=== PATIENT | female | born 1990 | race Caucasian/White ===

== ENCOUNTER 2017-02-13 06:57 | Inpatient (IN) | payer BC ==
[2017-02-13] MEDS ORDERED: fentaNYL 100 MCG/2 ML SDV IVPUSH PRN (07:36)
[2017-02-13] MEDS ORDERED: Sodium Chloride 0.9% 10 ML Syringe FLUSH PRN (07:36)
[2017-02-13] MEDS ORDERED: Misoprostol 50 MCG (1/2 of 100 MCG) Tab VAG ONE ×2 (08:00→12:49)
--- NOTE | 2017-02-13 08:15 | PCM.LDHP ---
L&D History of Present Illness - General Date of Service: 02/13/17 (induction) Admit Problem/Dx: Patient Status Order with Admit Dx/Problem 02/13/17 07:36 Patient Status [ADT] Routine Admission Diagnosis/Problem Admission Diagnosis/Problem - planned Source of Information: Patient History Limitations: Reports: No Limitations - History of Present Illness Introduction:: This 26 year old who is 40 2/7 weeks presents for induction of labor. JANA 02/11/17 based on LMP and early US. Last baby was 8-6 and I had to use the vacuum to get her out. Lab: ABO A pos HIV neg Rubella immune GBS neg - Related Data Allergies/Adverse Reactions: Allergies Allergy/AdvReac Type Severity Reaction Status Date / Time latex Allergy Rash Verified 02/13/17 07:23 Home Medications: Home Meds Levothyroxine Sodium [Levothyroxine Sodium] 175 mcg PO DAILY 01/12/15 [History] Vit/Iron Bisglycin/FA [Vinate II] 1 tab PO QPM 01/12/15 [History] Past Medical History HEENT History: Reports: Impaired Vision [employer] History: Reports: : 4 Para: 1 LMP (Approximate): (JANA 02/11/17) Other OB/BYN History: Polysystic ovarian syndrome. Other Musculoskeletal History: Scoliosis Endocrine/Metabolic History: Reports: Hypoparathyroidism - Past Surgical History HEENT Surgical History: Reports: Tonsillectomy Social & Family History - Family History Family Medical History: Noncontributory - Tobacco Use Smoking Status *Q: Never Smoker Second Hand Smoke Exposure: No - Caffeine Use Caffeine Use: Reports: Soda Other Caffeine Use: 1 per day - Alcohol Use Days Per Week of Alcohol Use: 0 - Recreational Drug Use Recreational Drug Use: No H&P Review of Systems - Review of Systems: Review Of Systems: See Below General: Reports: No Symptoms HEENT: Reports: No Symptoms Pulmonary: Reports: No Symptoms Cardiovascular: Reports: No Symptoms Gastrointestinal: Reports: No Symptoms Genitourinary: Reports: No Symptoms Musculoskeletal: Reports: No Symptoms Skin: Reports: No Symptoms Psychiatric: Reports: No Symptoms Neurological: Reports: No Symptoms Hematologic/Lymphatic: Reports: No Symptoms Immunologic: Reports: No Symptoms L&D Exam - Exam Exam: See Below - Vital Signs Vital Signs: Last Vital Signs Temp 98.7 F 02/13/17 07:08 Pulse 110 H 02/13/17 07:08 Resp 18 02/13/17 07:08 BP 122/79 02/13/17 07:08 Pulse Ox 97 02/13/17 07:08 Weight: 228 lb - OB Specific Fundal Height In cm: 39 Movement: Active Heart Tones: Present Heart Tones per Min: 145 Heart Rate (FHR) Variability: Moderate (6-25 bmp) Presentation: Vertex Estimated Weight: 8 pounds - Ocampo Score Ocampo Score Cervix Position: Anterior Ocampo Score Consistency: Soft Ocampo Score Effacement: 51-70% Ocampo Score Dilation: 1-2 cm Ocampo Score Infant's Station: -1 ,0 Ocampo Score Total: 9 - Exam General: Alert, Oriented HEENT: PERRLA, Conjunctiva Clear, Pupils Equal, Pupils Reactive Neck: Supple Lungs: Clear to Auscultation, Normal Respiratory Effort Cardiovascular: Regular Rate, Regular Rhythm GI/Abdominal Exam: Soft, Non-Tender, No Organomegaly, No Mass Rectal Exam: Normal Exam Genitourinary: Normal external exam, Cervical dilitation, Enlarged uterus, Vaginal discharge Back Exam: Normal Inspection, Full Range of Motion Extremities: Normal Inspection, Normal Range of Motion, Non-Tender, No Pedal Edema, Normal Capillary Refill Skin: Warm, Dry, Intact Neurological: Cranial Nerves Intact, Reflexes Equal Bilateral Psychiatric: Alert, Normal Affect, Normal Mood - Patient Data Lab Results Last 24 hrs: Laboratory Results - last 24 hr 02/13/17 02/13/17 02/13/17 Range/Units 07:09 07:09 07:36 WBC 11.8 H (4.5-11.0) K/uL RBC 4.06 (3.30-5.50) M/uL Hgb 12.3 (12.0-15.0) g/dL Hct 37.5 (36.0-48.0) % MCV 92 (80-98) fL MCH 30 (27-31) pg MCHC 33 (32-36) % Plt Count 179 (150-400) K/uL Urine Color Yellow Urine Appearance Slightly cloudy Urine pH 5.0 (4.5-8.0) Ur Specific [place] 1.030 (1.008-1.030) Urine Protein Negative (NEGATIVE) mg/dL Urine Glucose (UA) Normal (NEGATIVE) mg/dL Urine Ketones Negative (NEGATIVE) mg/dL Urine Occult Blood Negative (NEGATIVE) Urine Nitrite Negative (NEGATIVE) Urine Bilirubin Negative (NEGATIVE) Urine Urobilinogen 1 (NORMAL) mg/dL Ur Leukocyte Esterase Moderate (NEGATIVE) Urine RBC 0-5 (0-5) Urine WBC 0-5 (0-5) Ur Epithelial Cells Moderate Amorphous Sediment Not seen Urine Bacteria Few Urine Mucus Moderate Urine Opiates Screen Negative (NEGATIVE) Ur Oxycodone Screen Negative (NEGATIVE) Urine Methadone Screen Negative (NEGATIVE) Ur Propoxyphene Screen Negative (NEGATIVE) Ur Barbiturates Screen Negative (NEGATIVE) Ur Tricyclics Screen Negative (NEGATIVE) Ur Phencyclidine Scrn Negative (NEGATIVE) Ur Amphetamine Screen Negative (NEGATIVE) U Methamphetamines Scrn Negative (NEGATIVE) Urine MDMA Screen Negative (NEGATIVE) U Benzodiazepines Scrn Negative (NEGATIVE) U Cocaine Metab Screen Negative (NEGATIVE) U Marijuana (THC) Screen Negative (NEGATIVE) Result Diagrams: 02/13/17 07:36 - Problem List (1) Elective induction of labor planned SNOMED Code(s): 817614621 ICD Code: [id number] - Status: Acute Current Visit: Yes (2) SNOMED Code(s): 89932120 ICD Code: Z34.90 - ENCNTR FOR SUPRVSN OF NORMAL , UNSP, UNSP TRIMESTER Status: Acute Current Visit: Yes Qualifiers: Weeks of gestation: 40 weeks Qualified Code(s): Z3A.40 - 40 weeks gestation of Problem List Initiated/Reviewed/Updated: Yes Orders Last 24hrs: Active Orders 24 hr Category Date Time Status Patient Status [ADT] Routine ADT 02/13/17 07:36 Active Antiembolic Devices [RC] .Routine Care 02/13/17 07:39 Active Communication Order [RC] ASDIRECTED Care 02/13/17 07:36 Active Heart Tones [RC] PER UNIT ROUTINE Care 02/13/17 07:36 Active May Shower [RC] ASDIRECTED Care 02/13/17 07:36 Active Notify Provider Vital Signs [RC] PRN Care 02/13/17 07:36 Active Notify Provider [RC] PRN Care 02/13/17 07:36 Active Up ad Nevaeh [RC] ASDIRECTED Care 02/13/17 07:36 Active VTE/DVT Education [RC] Click to Edit Care 02/13/17 07:39 Active Vital Signs [RC] PER UNIT ROUTINE Care 02/13/17 07:36 Active Regular Diet [DIET] Diet 02/13/17 Lunch Active Acetaminophen [Tylenol] Med 02/13/17 07:36 Active 650 mg PO Q4H PRN Ondansetron [Zofran ODT] Med 02/13/17 07:36 Active 4 mg PO Q4H PRN Oxytocin/Normal Saline [Pitocin in NS 20 Units/1,000 ML Med 02/13/17 07:45 Active ] 20 unit in 1,000 ml IV TITRATE Sodium Chloride 0.9% [Saline Flush] Med 02/13/17 07:36 Active 10 ml FLUSH ASDIRECTED PRN fentaNYL [Sublimaze] Med 02/13/17 07:36 Active 100 mcg IVPUSH Q1H PRN DVT/VTE Prophylaxis Reflex [OM.PC] Routine Oth 02/13/17 07:36 Ordered Saline Lock Insert [OM.PC] Routine Oth 02/13/17 07:36 Ordered Resuscitation Status Routine Resus Stat 02/13/17 07:36 Ordered Medication Orders Acetaminophen (Tylenol) 650 mg PO Q4H PRN PRN Reason: Pain (Mild 1-3) and fever Fentanyl (Sublimaze) 100 mcg IVPUSH Q1H PRN PRN Reason: Pain (moderate 4-6) Oxytocin/Sodium Chloride (Pitocin In Ns 20 Units/1,000 Ml) 20 unit in 1,000 mls @ 6 mls/hr IV TITRATE JAZ; 2 MUNITS/MIN PRN Reason: Protocol Ondansetron HCl (Zofran Odt) 4 mg PO Q4H PRN PRN Reason: Nausea/Vomiting Sodium Chloride (Saline Flush) 10 ml FLUSH ASDIRECTED PRN PRN Reason: Keep Vein Open Assessment/Plan Comment:: 26 year old 40 2/7 weeks presents for planned induction. Adequate care. History of hypothyroid, controlled during . Labs: ABO A pos, GBS neg, HIV neg, Rubella immune. CE /0 anterior, head down Baseline FHT 145 moderate variability, Cat one strip Bishops score 9 Plan Misoprostol 50 mcg this morning vaginally Reassess at noon, may repeat dose. Epidural later today. Plan for vaginal delivery.
[2017-02-13] MEDS ORDERED: Misoprostol 25 MCG (1/4 of 100 MCG) Tab ONE (12:47)
[2017-02-13] MEDS: Lactated Ringers 1,000 ML IV SCH ×2 (13:22→14:20)
--- NOTE | 2017-02-13 13:24 | PCM.PNLD ---
Labor Progress Note - VS & Meds Vital Signs: Last Vital Signs Temp 98.3 F 02/13/17 12:06 Pulse 90 02/13/17 12:06 Resp 18 02/13/17 12:06 BP 124/78 02/13/17 12:06 Pulse Ox 97 02/13/17 12:06 Active Medications: Current Medications Acetaminophen (Tylenol) 650 mg PO Q4H PRN PRN Reason: Pain (Mild 1-3) and fever Fentanyl (Sublimaze) 100 mcg IVPUSH Q1H PRN PRN Reason: Pain (moderate 4-6) Oxytocin/Sodium Chloride (Pitocin In Ns 20 Units/1,000 Ml) 20 unit in 1,000 mls @ 6 mls/hr IV TITRATE JAZ; 2 MUNITS/MIN PRN Reason: Protocol Lactated Ringer's (Ringers, Lactated) 1,000 mls @ 125 mls/hr IV ASDIRECTED JAZ Misoprostol (Cytotec) 25 mcg VAG ONETIME ONE Stop: 02/13/17 12:50 Ondansetron HCl (Zofran Odt) 4 mg PO Q4H PRN PRN Reason: Nausea/Vomiting Sodium Chloride (Saline Flush) 10 ml FLUSH ASDIRECTED PRN PRN Reason: Keep Vein Open Discontinued Medications Misoprostol (Cytotec) 50 mcg VAG ONETIME ONE Stop: 02/13/17 08:01 Last Admin: 02/13/17 08:04 Dose: 50 mcg Misoprostol (Cytotec) Confirm Administered Dose 25 mcg .ROUTE .STK-MED ONE Stop: 02/13/17 12:48 Last Admin: 02/13/17 12:51 Dose: Not Given - Uterine Contractions Uterine Monitoring Mode: External [place] Contraction Frequency (min): 1.5-4 Contraction Duration (sec): 40 Contraction Intensity: Mild to Moderate Uterine Resting Tone: Soft - Monitoring Monitor Mode: Doppler/Auscultation Heart Rate (FHR) Baseline: 135 Heart Rate (FHR) Variability: Moderate (6-25 bmp) Accelerations: Present, 15x15 Decelerations: None Strip Review: Category I - Vaginal Exam Dilation (cm): 3-4 Effacement (Percent): 75 Station: 0 Cervical Position: Anterior Sterile Vaginal Exam Performed By: Dominique Marroquin Vaginal Exam Comment: Nice change since this morning; little bloody show - Labor Progress (Free Text) Labor Progress: 02/13/17 Latent labor with cervical change Membranes stripped with vaginal exam Second dose of misoprostil 25mcg vaginally Plan for epidural in the next couple of hours; bolus of NS started Anticipate vaginal delivery early this evening
[2017-02-13] MEDS ORDERED: ePHEDrine 50 MG/ML SDV ONE (14:05)
[2017-02-13] MEDS ORDERED: Oxytocin 10 Units/1 ML SDV ONE ×3 (14:12→19:10)
[2017-02-13] MEDS ORDERED: Naloxone 0.4 MG/ML SDV ONE (14:12)
[2017-02-13] MEDS ORDERED: Lidocaine 1% 50 ML MDV ONE (14:12)
[2017-02-13] MEDS ORDERED: ePHEDrine 50 MG/ML SDV IVPUSH PRN (14:20)
[2017-02-13] MEDS ORDERED: Ropivacaine 100 ML ONE (14:57)
[2017-02-13] MEDS ORDERED: fentaNYL 100 MCG/2 ML SDV ONE (14:57)
--- NOTE | 2017-02-13 16:21 | PCM.PNLD ---
Labor Progress Note - VS & Meds Vital Signs: Last Vital Signs Temp 98.3 F 02/13/17 12:06 Pulse 90 02/13/17 12:06 Resp 18 02/13/17 12:06 BP 99/58 L 02/13/17 15:03 Pulse Ox 97 02/13/17 12:06 Active Medications: Current Medications Acetaminophen (Tylenol) 650 mg PO Q4H PRN PRN Reason: Pain (Mild 1-3) and fever Fentanyl (Sublimaze) 100 mcg IVPUSH Q1H PRN PRN Reason: Pain (moderate 4-6) Oxytocin/Sodium Chloride (Pitocin In Ns 20 Units/1,000 Ml) 20 unit in 1,000 mls @ 6 mls/hr IV TITRATE JAZ; 2 MUNITS/MIN PRN Reason: Protocol Last Admin: 02/13/17 14:17 Dose: 2 munits/min, 6 mls/hr Lactated Ringer's (Ringers, Lactated) 1,000 mls @ 125 mls/hr IV ASDIRECTED JAZ Last Admin: 02/13/17 14:20 Dose: 125 mls/hr Ondansetron HCl (Zofran Odt) 4 mg PO Q4H PRN PRN Reason: Nausea/Vomiting Sodium Chloride (Saline Flush) 10 ml FLUSH ASDIRECTED PRN PRN Reason: Keep Vein Open Discontinued Medications Ephedrine Sulfate (Ephedrine Sulfate) Confirm Administered Dose 50 mg .ROUTE .STK-MED ONE Stop: 02/13/17 14:06 Last Admin: 02/13/17 15:09 Dose: 10 mg Fentanyl (Sublimaze) Confirm Administered Dose 100 mcg .ROUTE .STK-MED ONE Stop: 02/13/17 14:58 Oxytocin/Sodium Chloride (Pitocin In Ns 20 Units/1,000 Ml) Confirm Administered Dose 20 unit in 1,000 mls @ as directed .ROUTE .STK-MED ONE Stop: 02/13/17 14:13 Last Admin: 02/13/17 14:17 Dose: Not Given Ropivacaine (Naropin 0.2%) Confirm Administered Dose 100 mls @ as directed .ROUTE .STK-MED ONE Stop: 02/13/17 14:58 Lidocaine HCl (Xylocaine 1%) Confirm Administered Dose 100 ml .ROUTE .STK-MED ONE Stop: 02/13/17 14:13 Misoprostol (Cytotec) 50 mcg VAG ONETIME ONE Stop: 02/13/17 08:01 Last Admin: 02/13/17 08:04 Dose: 50 mcg Misoprostol (Cytotec) Confirm Administered Dose 25 mcg .ROUTE .STK-MED ONE Stop: 02/13/17 12:48 Last Admin: 02/13/17 12:51 Dose: Not Given Misoprostol (Cytotec) 25 mcg VAG ONETIME ONE Stop: 02/13/17 12:50 Last Admin: 02/13/17 13:22 Dose: 25 mcg Naloxone HCl (Narcan) Confirm Administered Dose 0.4 mg .ROUTE .STK-MED ONE Stop: 02/13/17 14:13 Oxytocin (Pitocin) Confirm Administered Dose 10 unit .ROUTE .STK-MED ONE Stop: 02/13/17 14:13 - Uterine Contractions Uterine Monitoring Mode: External [place] Contraction Frequency (min): 2-3 Contraction Duration (sec): 50-60 Contraction Intensity: Moderate to Strong Uterine Resting Tone: Soft - Monitoring Monitor Mode: Doppler/Auscultation Heart Rate (FHR) Baseline: 135 Heart Rate (FHR) Variability: Moderate (6-25 bmp) Accelerations: Present, 15x15 Decelerations: Variable, Prolonged (>2x10 min) Strip Review: Category III - Vaginal Exam Dilation (cm): 5 Effacement (Percent): 100 Station: Ballotable Cervical Position: Anterior Sterile Vaginal Exam Performed By: Dominique Marroquin Vaginal Exam Comment: prolonged heart rate in the 90's. - Labor Progress (Free Text) Labor Progress: compromise from variables decels To OR for c section CE 5/100/0
--- NOTE | 2017-02-13 17:27 | ANES ---
DATE OF SERVICE: 02/13/2017 INDICATION: This 26-year-old has been in an induced labor since early this morning. Currently, her vital signs are stable and her dilatation is to 4-5 and she is having increased pain. Donna Marroquin has asked that an epidural be placed. The patient's only allergy is to adhesive tape. We discussed risks and benefits of the procedure. She has understanding of these, as she had had an epidural 2 years ago done in this hospital apparently by me. She signed the informed consent. DESCRIPTION OF PROCEDURE: She was placed in a sitting position on the edge of the bed. A Betadine prep was carried out x3. A 2 mm skin wheal was injected at approximately L4-L5 and another 2 to 3 mL into the deeper tissue. I placed a 17-gauge Tuohy needle into that epidural space using a loss of resistance technique. I was unable to aspirate blood, fluid, or air from the epidural and proceeded to give her a bolus of 7 mL, which was 5 mL of 1.5% Xylocaine with epinephrine and 2 mL preservative-free fentanyl. On attempting to thread the catheter, this was not successful. Adjustment of the epidural catheter and again being unable to aspirate blood, fluid, or air from it. I could not advance the catheter. This patient was very accommodating and that she allowed me to repeat the procedure and once I had good loss of resistance, I easily thread the catheter 3-4 cm into the epidural space. The epidural needle was then removed over the catheter, brought up over her right shoulder, and taped securely in place. I then gave her a 10 mL bolus of 0.2% ropivacaine. She was then placed on a ropivacaine infusion at 12 mL/hour. This was then reviewed with the nurse in attendance. They will call Anesthesia Service should they need further assistance. NAME OF PROCEDURE: Placement of labor epidural. Shahab [place] CRNA /[id number]
[2017-02-13] MEDS ORDERED: Coagulation Factor VIIa Recombinant (per MCG) 2 MG Vial IVPUSH ONE ×2 (18:05→18:06)
[2017-02-13] MEDS ORDERED: Coagulation Factor VIIa Recombinant (per MCG) 2 MG Vial IVPUSH STA (18:21)
[2017-02-13] MEDS: Methylergonovine 0.2 MG/1 ML Amp ONE ×5 (18:41→20:38)
[2017-02-13] MEDS: Methylergonovine 0.2 MG/1 ML Amp IM STA (18:46)
[2017-02-13] MEDS ORDERED: HYDROmorphone/Normal Saline 15 MG/30 ML PCA IV ONE (19:01)
[2017-02-13] MEDS ORDERED: HYDROmorphone/Normal Saline 15 MG/30 ML PCA IV PRN (20:02)
[2017-02-13] MEDS ORDERED: Naloxone 0.4 MG/ML SDV IV PRN (20:11)
[2017-02-13] MEDS: HYDROmorphone/Normal Saline 15 MG/30 ML PCA IV PRN (20:53)
[2017-02-13] MEDS: D5 1/2 NS w/ 20 mEq/L KCl 1,000 ML ONE ×2 (21:00→22:31)
[2017-02-13] MEDS ORDERED: Lactated Ringers 500 ML IV SCH (21:15)
[2017-02-14] MEDS ORDERED: D5 1/2 NS w/ 20 mEq/L KCl 1,000 ML IV SCH ×2 (03:45)
--- NOTE | 2017-02-14 06:30 | PCM.SURGPN ---
- General Info Date of Service: 02/14/17 Date of Surgery/Procedure: 02/13/17 POD#: 1 Post-Op Diagnosis: Emergency section followed later by hysterectomy Functional Status: Reports: Pain Controlled, Tolerating Diet (Ice chips), Urinating (Olvera) - Review of Systems General: Reports: No Symptoms Pulmonary: Reports: No Symptoms Cardiovascular: Reports: No Symptoms Gastrointestinal: Reports: Abdominal Pain (Incisional. ), Other (Would like to drink something). Denies: Nausea Genitourinary: Reports: No Symptoms (Olvera in place) Musculoskeletal: Reports: No Symptoms Skin: Reports: No Symptoms Neurological: Reports: No Symptoms Psychiatric: Reports: No Symptoms - Patient Data Vitals - Most Recent: Last Vital Signs Temp 96.6 F 02/13/17 18:50 Pulse 97 02/14/17 04:27 Resp 16 02/14/17 04:27 BP 129/72 02/14/17 04:27 Pulse Ox 96 02/14/17 04:27 Weight - Most Recent: 228 lb I&O - Last 24 Hours: Intake & Output 02/13/17 02/13/17 02/14/17 14:59 22:59 06:59 Intake Total 4500 1090 Output Total 495 Balance 4500 595 Lab Results Last 24 Hrs: Laboratory Results - last 24 hr 02/13/17 02/13/17 02/13/17 Range/Units 07:09 07:09 07:36 WBC 11.8 H (4.5-11.0) K/uL RBC 4.06 (3.30-5.50) M/uL Hgb 12.3 (12.0-15.0) g/dL Hct 37.5 (36.0-48.0) % MCV 92 (80-98) fL MCH 30 (27-31) pg MCHC 33 (32-36) % Plt Count 179 (150-400) K/uL Sodium (140-148) mmol/L Potassium (3.6-5.2) mmol/L Chloride (100-108) mmol/L Carbon Dioxide (21-32) mmol/L Anion Gap (5.0-14.0) mmol/L BUN (7-18) mg/dL Creatinine (0.6-1.0) mg/dL Est Cr Clr Drug Dosing mL/min Estimated GFR (MDRD) (>60) Glucose (74-106) mg/dL Calcium (8.5-10.1) mg/dL Total Bilirubin (0.2-1.0) mg/dL AST (15-37) U/L ALT (12-78) U/L Alkaline Phosphatase (46-116) U/L Total Protein (6.4-8.2) g/dL Albumin (3.4-5.0) g/dL Globulin (2.3-3.5) g/dL Albumin/Globulin Ratio (1.2-2.2) Urine Color Yellow Urine Appearance Slightly cloudy Urine pH 5.0 (4.5-8.0) Ur Specific Cranston 1.030 (1.008-1.030) Urine Protein Negative (NEGATIVE) mg/dL Urine Glucose (UA) Normal (NEGATIVE) mg/dL Urine Ketones Negative (NEGATIVE) mg/dL Urine Occult Blood Negative (NEGATIVE) Urine Nitrite Negative (NEGATIVE) Urine Bilirubin Negative (NEGATIVE) Urine Urobilinogen 1 (NORMAL) mg/dL Ur Leukocyte Esterase Moderate (NEGATIVE) Urine RBC 0-5 (0-5) Urine WBC 0-5 (0-5) Ur Epithelial Cells Moderate Amorphous Sediment Not seen Urine Bacteria Few Urine Mucus Moderate Urine Opiates Screen Negative (NEGATIVE) Ur Oxycodone Screen Negative (NEGATIVE) Urine Methadone Screen Negative (NEGATIVE) Ur Propoxyphene Screen Negative (NEGATIVE) Ur Barbiturates Screen Negative (NEGATIVE) Ur Tricyclics Screen Negative (NEGATIVE) Ur Phencyclidine Scrn Negative (NEGATIVE) Ur Amphetamine Screen Negative (NEGATIVE) U Methamphetamines Scrn Negative (NEGATIVE) Urine MDMA Screen Negative (NEGATIVE) U Benzodiazepines Scrn Negative (NEGATIVE) U Cocaine Metab Screen Negative (NEGATIVE) U Marijuana (THC) Screen Negative (NEGATIVE) Blood Type Gel Antibody Screen Crossmatch 02/13/17 02/13/17 02/13/17 Range/Units 17:09 17:55 22:01 WBC 20.8 H (4.5-11.0) K/uL RBC 2.65 L (3.30-5.50) M/uL Hgb 8.1 L D 11.4 L D (12.0-15.0) g/dL Hct 25.0 L (36.0-48.0) % MCV 94 (80-98) fL MCH 31 (27-31) pg MCHC 32 (32-36) % Plt Count 153 (150-400) K/uL Sodium (140-148) mmol/L Potassium (3.6-5.2) mmol/L Chloride (100-108) mmol/L Carbon Dioxide (21-32) mmol/L Anion Gap (5.0-14.0) mmol/L BUN (7-18) mg/dL Creatinine (0.6-1.0) mg/dL Est Cr Clr Drug Dosing mL/min Estimated GFR (MDRD) (>60) Glucose (74-106) mg/dL Calcium (8.5-10.1) mg/dL Total Bilirubin (0.2-1.0) mg/dL AST (15-37) U/L ALT (12-78) U/L Alkaline Phosphatase (46-116) U/L Total Protein (6.4-8.2) g/dL Albumin (3.4-5.0) g/dL Globulin (2.3-3.5) g/dL Albumin/Globulin Ratio (1.2-2.2) Urine Color Urine Appearance Urine pH (4.5-8.0) Ur Specific Cranston (1.008-1.030) Urine Protein (NEGATIVE) mg/dL Urine Glucose (UA) (NEGATIVE) mg/dL Urine Ketones (NEGATIVE) mg/dL Urine Occult Blood (NEGATIVE) Urine Nitrite (NEGATIVE) Urine Bilirubin (NEGATIVE) Urine Urobilinogen (NORMAL) mg/dL Ur Leukocyte Esterase (NEGATIVE) Urine RBC (0-5) Urine WBC (0-5) Ur Epithelial Cells Amorphous Sediment Urine Bacteria Urine Mucus Urine Opiates Screen (NEGATIVE) Ur Oxycodone Screen (NEGATIVE) Urine Methadone Screen (NEGATIVE) Ur Propoxyphene Screen (NEGATIVE) Ur Barbiturates Screen (NEGATIVE) Ur Tricyclics Screen (NEGATIVE) Ur Phencyclidine Scrn (NEGATIVE) Ur Amphetamine Screen (NEGATIVE) U Methamphetamines Scrn (NEGATIVE) Urine MDMA Screen (NEGATIVE) U Benzodiazepines Scrn (NEGATIVE) U Cocaine Metab Screen (NEGATIVE) U Marijuana (THC) Screen (NEGATIVE) Blood Type A POSITIVE Gel Antibody Screen Negative Crossmatch See Detail 02/14/17 02/14/17 Range/Units 03:50 03:50 WBC (4.5-11.0) K/uL RBC (3.30-5.50) M/uL Hgb 10.1 L (12.0-15.0) g/dL Hct (36.0-48.0) % MCV (80-98) fL MCH (27-31) pg MCHC (32-36) % Plt Count (150-400) K/uL Sodium 136 L (140-148) mmol/L Potassium 5.3 H (3.6-5.2) mmol/L Chloride 108 (100-108) mmol/L Carbon Dioxide 18 L (21-32) mmol/L Anion Gap 15.3 H (5.0-14.0) mmol/L BUN 11 D (7-18) mg/dL Creatinine 0.7 (0.6-1.0) mg/dL Est Cr Clr Drug Dosing 101.63 mL/min Estimated GFR (MDRD) > 60 (>60) Glucose 135 H (74-106) mg/dL Calcium 7.5 L (8.5-10.1) mg/dL Total Bilirubin 0.6 D (0.2-1.0) mg/dL AST 59 H D (15-37) U/L ALT 21 (12-78) U/L Alkaline Phosphatase 65 (46-116) U/L Total Protein 4.3 L (6.4-8.2) g/dL Albumin 1.5 L (3.4-5.0) g/dL Globulin 2.8 (2.3-3.5) g/dL Albumin/Globulin Ratio 0.5 L (1.2-2.2) Urine Color Urine Appearance Urine pH (4.5-8.0) Ur Specific [place] (1.008-1.030) Urine Protein (NEGATIVE) mg/dL Urine Glucose (UA) (NEGATIVE) mg/dL Urine Ketones (NEGATIVE) mg/dL Urine Occult Blood (NEGATIVE) Urine Nitrite (NEGATIVE) Urine Bilirubin (NEGATIVE) Urine Urobilinogen (NORMAL) mg/dL Ur Leukocyte Esterase (NEGATIVE) Urine RBC (0-5) Urine WBC (0-5) Ur Epithelial Cells Amorphous Sediment Urine Bacteria Urine Mucus Urine Opiates Screen (NEGATIVE) Ur Oxycodone Screen (NEGATIVE) Urine Methadone Screen (NEGATIVE) Ur Propoxyphene Screen (NEGATIVE) Ur Barbiturates Screen (NEGATIVE) Ur Tricyclics Screen (NEGATIVE) Ur Phencyclidine Scrn (NEGATIVE) Ur Amphetamine Screen (NEGATIVE) U Methamphetamines Scrn (NEGATIVE) Urine MDMA Screen (NEGATIVE) U Benzodiazepines Scrn (NEGATIVE) U Cocaine Metab Screen (NEGATIVE) U Marijuana (THC) Screen (NEGATIVE) Blood Type Gel Antibody Screen Crossmatch Med Orders - Current: Current Medications Acetaminophen (Tylenol) 650 mg PO Q4H PRN PRN Reason: Pain (Mild 1-3) and fever Fentanyl (Sublimaze) 100 mcg IVPUSH Q1H PRN PRN Reason: Pain (moderate 4-6) Hydromorphone HCl (Dilaudid Trackless Trolley Driver 15 Mg In Ns 30 Ml) 0 mg IV ASDIRECTED PRN; Protocol PRN 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 Last Admin: 02/13/17 20:53 Dose: 15 mg Naloxone HCl (Narcan) 0.1 mg IV ASDIRECTED PRN PRN Reason: decreased respiratory rate Ondansetron HCl (Zofran Odt) 4 mg PO Q4H PRN PRN Reason: Nausea/Vomiting Sodium Chloride (Saline Flush) 10 ml FLUSH ASDIRECTED PRN PRN Reason: Keep Vein Open Discontinued Medications Ephedrine Sulfate (Ephedrine Sulfate) Confirm Administered Dose 50 mg .ROUTE .STK-MED ONE Stop: 02/13/17 14:06 Last Admin: 02/13/17 15:09 Dose: 10 mg Factor VIIa (Recombinant) (Novoseven Rt) Confirm Administered Dose 2 mcg IVPUSH .STK-MED ONE Stop: 02/13/17 18:06 Factor VIIa (Recombinant) (Novoseven Rt) Confirm Administered Dose 2 mcg IVPUSH .STK-MED ONE Stop: 02/13/17 18:07 Factor VIIa (Recombinant) (Novoseven Rt) 2,000 mcg IVPUSH ONETIME STA Stop: 02/13/17 18:22 Last Admin: 02/13/17 18:13 Dose: 2,000 mcg Fentanyl (Sublimaze) Confirm Administered Dose 100 mcg .ROUTE .STK-MED ONE Stop: 02/13/17 14:58 Hydromorphone HCl (Dilaudid Trackless Trolley Driver 15 Mg In Ns 30 Ml) Confirm Administered Dose 15 mg IV .STK-MED ONE Stop: 02/13/17 19:02 Last Admin: 02/13/17 22:30 Dose: Not Given Hydromorphone HCl (Dilaudid Trackless Trolley Driver 15 Mg In Ns 30 Ml) 15 mg IV ASDIRECTED PRN; Protocol PRN Reason: PAIN Oxytocin/Sodium Chloride (Pitocin In Ns 20 Units/1,000 Ml) 20 unit in 1,000 mls @ 6 mls/hr IV TITRATE JAZ; 2 MUNITS/MIN PRN Reason: Protocol Last Admin: 02/13/17 14:17 Dose: 2 munits/min, 6 mls/hr Lactated Ringer's (Ringers, Lactated) 1,000 mls @ 125 mls/hr IV ASDIRECTED JAZ Last Admin: 02/13/17 14:20 Dose: 125 mls/hr Oxytocin/Sodium Chloride (Pitocin In Ns 20 Units/1,000 Ml) Confirm Administered Dose 20 unit in 1,000 mls @ as directed .ROUTE .STK-MED ONE Stop: 02/13/17 14:13 Last Admin: 02/13/17 14:17 Dose: Not Given Ropivacaine (Naropin 0.2%) Confirm Administered Dose 100 mls @ as directed .ROUTE .STK-MED ONE Stop: 02/13/17 14:58 Potassium Chloride/Dextrose/Sod Cl (D5 1/2 Ns W/ 20 Meq/L Kcl) Confirm Administered Dose 1,000 mls @ as directed .ROUTE .STK-MED ONE Stop: 02/13/17 20:39 Last Admin: 02/13/17 22:31 Dose: Not Given Lactated Ringer's (Ringers, Lactated) 500 mls @ 500 mls/hr IV .BOLUS JAZ Last Admin: 02/13/17 22:00 Dose: 500 mls/hr Potassium Chloride/Dextrose/Sod Cl (D5 1/2 Ns W/ 20 Meq/L Kcl) 1,000 mls @ 150 mls/hr IV ASDIRECTED JAZ Potassium Chloride/Dextrose/Sod Cl (D5 1/2 Ns W/ 20 Meq/L Kcl) 1,000 mls @ 150 mls/hr IV ASDIRECTED JAZ Last Admin: 02/14/17 04:01 Dose: 150 mls/hr Lidocaine HCl (Xylocaine 1%) Confirm Administered Dose 100 ml .ROUTE .STK-MED ONE Stop: 02/13/17 14:13 Last Admin: 02/13/17 22:31 Dose: Not Given Methylergonovine Maleate (Methergine) Confirm Administered Dose 0.2 mg .ROUTE .STK-MED ONE Stop: 02/13/17 18:35 Last Admin: 02/13/17 19:53 Dose: Not Given Methylergonovine Maleate (Methergine) Confirm Administered Dose 0.2 mg .ROUTE .STK-MED ONE Stop: 02/13/17 18:39 Last Admin: 02/13/17 20:38 Dose: Not Given Methylergonovine Maleate (Methergine) 0.2 mg IM ONETIME STA Stop: 02/13/17 19:55 Last Admin: 02/13/17 18:46 Dose: 0.2 mg Misoprostol (Cytotec) 50 mcg VAG ONETIME ONE Stop: 02/13/17 08:01 Last Admin: 02/13/17 08:04 Dose: 50 mcg Misoprostol (Cytotec) Confirm Administered Dose 25 mcg .ROUTE .STK-MED ONE Stop: 02/13/17 12:48 Last Admin: 02/13/17 12:51 Dose: Not Given Misoprostol (Cytotec) 25 mcg VAG ONETIME ONE Stop: 02/13/17 12:50 Last Admin: 02/13/17 13:22 Dose: 25 mcg Naloxone HCl (Narcan) Confirm Administered Dose 0.4 mg .ROUTE .STK-MED ONE Stop: 02/13/17 14:13 Last Admin: 02/13/17 22:31 Dose: Not Given Oxytocin (Pitocin) Confirm Administered Dose 10 unit .ROUTE .STK-MED ONE Stop: 02/13/17 14:13 Last Admin: 02/13/17 22:00 Dose: 10 unit Oxytocin (Pitocin) Confirm Administered Dose 10 unit .ROUTE .STK-MED ONE Stop: 02/13/17 19:11 Last Admin: 02/13/17 22:42 Dose: 10 unit Sodium Chloride (Normal Saline) 2,000 ml IV .STK-MED ONE Stop: 02/13/17 17:31 Last Admin: 02/13/17 17:30 Dose: 2,000 ml - Exam Wound/Incisions: Dressing Dry and Intact Quality Assessment: No: DVT Prophylaxis (Refused SCDs) General: Alert, Oriented, Cooperative, No Acute Distress Lungs: Clear to Auscultation, Normal Respiratory Effort Cardiovascular: Regular Rate, Regular Rhythm GI/Abdominal Exam: No: Normal Bowel Sounds (Rare bowel sounds) Extremities: Normal Inspection Skin: Warm, Dry, Intact Neurological: No New Focal Deficit Psy/Mental Status: Alert, Normal Affect, Normal Mood - Problem List Review Problem List Initiated/Reviewed/Updated: Yes - My Orders Last 24 Hours: Active Orders 24 hr Category Date Time Status Patient Status [ADT] Routine ADT 02/13/17 07:36 Active Antiembolic Devices [RC] .Routine Care 02/13/17 07:39 Active Communication Order [RC] ASDIRECTED Care 02/14/17 03:40 Active May Shower [RC] .PRN Care 02/13/17 07:36 Active Notify Provider Vital Signs [RC] PRN Care 02/13/17 07:36 Active Up ad Nevaeh [RC] ASDIRECTED Care 02/13/17 07:36 Active VTE/DVT Education [RC] .PRN Care 02/13/17 07:39 Active Vital Signs [RC] Q2H Care 02/13/17 07:36 Active Clear Liquid Diet [DIET] Diet 02/14/17 Breakfast Ordered CBC W/O DIFF,HEMOGRAM [HEME] Routine Lab 02/14/17 12:00 Ordered PATIENT RETYPE [BBK] Stat Lab 02/13/17 17:09 Results RED BLOOD CELLS LP [BBK] Stat Lab 02/13/17 17:09 Results TYPE AND SCREEN [BBK] Stat Lab 02/13/17 17:09 Results Acetaminophen [Tylenol] Med 02/13/17 07:36 Active 650 mg PO Q4H PRN Dextrose 5%-1/2 Normal Saline @ 125 MLS/HR(1000ml) Med 02/14/17 06:30 Ordered Dextrose 5%-0.45% NaCl [Dextrose 5%-1/2 NS] 1,000 ml IV ASDIRECTED HYDROmorphone/Normal Saline [Dilaudid KRAFT MILL OPERATOR 15 MG in NS Med 02/13/17 20:11 Active 30 ML] 0 mg IV ASDIRECTED PRN Naloxone [Narcan] Med 02/13/17 20:11 Active 0.1 mg IV ASDIRECTED PRN Ondansetron [Zofran ODT] Med 02/13/17 07:36 Active 4 mg PO Q4H PRN Sodium Chloride 0.9% [Saline Flush] Med 02/13/17 07:36 Active 10 ml FLUSH ASDIRECTED PRN fentaNYL [Sublimaze] Med 02/13/17 07:36 Active 100 mcg IVPUSH Q1H PRN DVT/VTE Prophylaxis Reflex [OM.PC] Routine Oth 02/13/17 07:36 Ordered Saline Lock Insert [OM.PC] Routine Oth 02/13/17 07:36 Ordered Resuscitation Status Routine Resus Stat 02/13/17 07:36 Ordered Medication Orders Acetaminophen (Tylenol) 650 mg PO Q4H PRN PRN Reason: Pain (Mild 1-3) and fever Fentanyl (Sublimaze) 100 mcg IVPUSH Q1H PRN PRN Reason: Pain (moderate 4-6) Hydromorphone HCl (Dilaudid Trackless Trolley Driver 15 Mg In Ns 30 Ml) 0 mg IV ASDIRECTED PRN; Protocol PRN 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 K a little high. Would like some juice. She looks well. - Plan Plan (Free Text/Narrative):: Clear liquid diet. D/C K in fluid. Recheck Hgb at noon.
--- NOTE | 2017-02-14 07:59 | OR ---
DATE OF PROCEDURE: 02/13/2017 PREOPERATIVE DIAGNOSIS: Postoperative hemorrhage, status post emergency section. POSTOPERATIVE DIAGNOSIS: Postoperative uncontrolled uterine bleeding, status post emergency section. PROCEDURE PERFORMED: Exploratory laparotomy and hysterectomy. ANESTHESIA: General endotracheal. INDICATIONS: This is a 26-year-old white female who was with her second child. She was in labor and the child was noted to have severe decelerations. A request was made for an immediate stat section due to distress. She underwent the section, delivering a baby boy with an score of 7, 8, and 8. There was a little bleeding at the time of surgery, which seemed to be fine when we closed; however, in the recovery room, we could not get her pressure up over 80, and this included giving her Pitocin, Methergine, factor VII, blood transfusions, and IV fluid. Her hemoglobin went from 12 to 8. We did manage to get her pressure up to 80 and it fell back down to 50, and with that, we decided we need to return to the operating room. I explained all this to her, and she gave her informed consent to proceed. We discussed the possibility of needing a hysterectomy. DESCRIPTION OF PROCEDURE: After adequate general endotracheal anesthesia was obtained, the patient's abdomen was prepped and draped in usual sterile fashion. The time -out was held. The skin page were removed. The underlying abdominal sutures closing the fascia were removed, and we encountered essentially no blood in the abdomen. At this point , it was noted that there was more bleeding from the vagina, and indeed, we got her pressure up a little with the Methergine, and she bled quite briskly. It was clear then we had to proceed with a hysterectomy. This was done by taking the endoscopic RUFINO with white loads and going down each side of the broad ligament, dividing down to the cervix. The cervix was then divided with radial intelligent reloads of page using a medium thick staple. The uterus was then delivered from the field. We preserved the ovaries. The stapler was used to do the anterior and posterior wall of the vagina. We then closed the vagina with running stitch of #2 Vicryl. At this point, the bleeding appeared to be controlled, and we were able to get her pressure up easily. We placed a little Surgicel back down into the pelvis, and then we closed the abdomen with a running stitch of #2 Vicryl to approximate the fascia. The incision was irrigated and suctioned dry. Skin page were placed to approximate the skin. A sterile dressing was applied. The anesthesia was reversed. She was extubated and brought to the recovery room in fair condition. She will spend the night in the Intensive Care Unit. Collin Muller MD /[id number] MTDPrem
--- NOTE | 2017-02-14 08:11 | OR ---
DATE OF PROCEDURE: 02/13/2017 PREOPERATIVE DIAGNOSIS: Term , distress. POSTOPERATIVE DIAGNOSIS: Term , distress. PROCEDURE: Stat section. SURGEON: Collin Muller MD. BUSINESS DEVELOPMENT PROFESSIONAL: Donna Marroquin, certified nurse practitioner. Per ACOG's standard of care guidelines, this procedure requires a family assistant. ANESTHESIA: Rapid sequence general endotracheal anesthesia. INDICATION: This 26-year-old white female is with her second child, she was laboring. The child was noted to have very worrisome decelerations, which then all of a sudden, were quite prolonged. A,request was made for a stat emergency section. I spoke with her as we were rolling her into the operating room, as she had previously been consented by Donna Marroquin. She gave her informed consent to proceed. DESCRIPTION OF PROCEDURE: The patient's abdomen was prepped and draped in the usual sterile fashion. A Olvera catheter was already in place. A wedge was placed under her right flank. Rapid sequence general endotracheal anesthesia was induced. As soon as they had controlled her airway a vertical incision was made from the umbilicus to the pubis. This was carried deep sharply to the fascia. The fascia was incised. The underlying peritoneum was elevated and incised. The peritoneal incision was extended to the length of the skin incision sharply while protecting underlying structures. The bladder flap was dissected free from the lower uterine segment. A transverse lower uterine segment incision was made, releasing some meconium stained amniotic fluid. The incision was bluntly opened in each direction, and then the child's head was delivered. Donna Marroquin aspirated its nose and mouth free. The child's body was delivered. The cord was doubly clamped and divided, and Dominique Marroquin attended to the child. This was found to be a baby boy, ultimately shown to have scores of 7, 8, and 8. Cord blood was collected. The placenta was delivered. It appeared to have a 3-vessel cord. Residual membranes were removed. Ten units of Pitocin was directly injected into the uterine body, and IV Pitocin was given by the Anesthesia Service. The transverse lower uterine segment incision was then closed with a running locking stitch of #1 Vicryl. A second running locking stitch of #1 Vicryl was placed over the first to further bolster the closure. There was some bleeding far down into the pelvis, and this was controlled with direct pressure. After a prolonged time, the packing was removed, and it appeared the bleeding was stopped. We did place Surgicel down in this area. The bladder flap was re-attached up over the lower uterine segment with a running stitch of #1 Vicryl. The muscles and peritoneum in the midline were closed with a running stitch of #2 Vicryl. The incision was irrigated and suctioned dry. Skin page were placed to approximate the skin. The anesthesia was reversed. She was extubated and brought to recovery room in fair condition. Collin Muller MD /[id number] SARITA
[2017-02-14] MEDS: Dextrose 5%-0.45% NaCl 1,000 ML IV SCH (11:26)
[2017-02-14] MEDS: HYDROmorphone/Normal Saline 15 MG/30 ML PCA IV PRN (16:05)
[2017-02-15] MEDS: Dextrose 5%-0.45% NaCl 1,000 ML IV SCH ×2 (00:19→08:17)
[2017-02-15] MEDS ORDERED: Levothyroxine 100 MCG Tab PO SCH (07:30)
[2017-02-15] MEDS: Acetaminophen 325 MG Tab PO PRN ×2 (09:24→14:51)
[2017-02-15] MEDS ORDERED: HYDROmorphone/Normal Saline 15 MG/30 ML PCA IV SCH (09:30)
[2017-02-15] MEDS: Ondansetron 4 MG Tab.DIS PO PRN ×2 (11:09→15:13)
--- NOTE | 2017-02-15 13:40 | PCM.SURGPN ---
- General Info Date of Service: 02/15/17 Date of Surgery/Procedure: 02/13/17 POD#: 2 Post-Op Diagnosis: section followed by hysterectomy for bleeding. Admission Diagnosis/Problem: section Functional Status: Reports: Pain Controlled, Tolerating Diet, Ambulating (In room only. ), Urinating (Olvera), Incentive Spirometry - Review of Systems General: Reports: No Symptoms HEENT: Reports: No Symptoms Pulmonary: Reports: No Symptoms Cardiovascular: Reports: No Symptoms Gastrointestinal: Reports: Abdominal Pain (Incisional ) Genitourinary: Reports: No Symptoms Musculoskeletal: Reports: Other (Low mid back pain. ) Skin: Reports: No Symptoms Neurological: Reports: No Symptoms Psychiatric: Reports: No Symptoms - Patient Data Vitals - Most Recent: Last Vital Signs Temp 98.7 F 02/15/17 13:00 Pulse 112 H 02/15/17 09:16 Resp 24 H 02/15/17 13:00 BP 132/75 02/15/17 13:00 Pulse Ox 99 02/15/17 13:00 Weight - Most Recent: 228 lb I&O - Last 24 Hours: Intake & Output 02/14/17 02/15/17 02/15/17 22:59 06:59 14:59 Intake Total 1239 1669 480 Output Total 245 3250 1650 Balance 994 -1581 -1170 Lab Results Last 24 Hrs: Laboratory Results - last 24 hr 02/13/17 02/14/17 02/15/17 Range/Units 17:09 20:24 05:45 Hgb 10.0 L 9.0 L (12.0-15.0) g/dL Blood Type A POSITIVE Gel Antibody Screen Negative Crossmatch See Detail Med Orders - Current: Current Medications Acetaminophen (Tylenol) 650 mg PO Q4H PRN PRN Reason: Pain (Mild 1-3) and fever Last Admin: 02/15/17 09:24 Dose: 650 mg Hydromorphone HCl (Dilaudid Hand Engraver 15 Mg In Ns 30 Ml) 0 mg IV ASDIRECTED JAZ PRN Reason: Protocol Dextrose/Sodium Chloride (Dextrose 5%-1/2 Ns) 1,000 mls @ 0 mls/hr IV ASDIRECTED JAZ PRN Reason: KVO Last Admin: 02/15/17 08:17 Dose: 125 mls/hr Levothyroxine Sodium 100 mcg/ (Levothyroxine Sodium 75 mcg) 175 mcg PO DAILY@ 0730 J[facility] Last Admin: 02/15/17 08:17 Dose: 175 mcg Naloxone HCl (Narcan) 0.1 mg IV ASDIRECTED PRN PRN Reason: decreased respiratory rate Ondansetron HCl (Zofran Odt) 4 mg PO Q4H PRN PRN Reason: Nausea/Vomiting Last Admin: 02/15/17 11:09 Dose: 4 mg Sodium Chloride (Saline Flush) 10 ml FLUSH ASDIRECTED PRN PRN Reason: Keep Vein Open Discontinued Medications Ephedrine Sulfate (Ephedrine Sulfate) Confirm Administered Dose 50 mg .ROUTE .STK-MED ONE Stop: 02/13/17 14:06 Last Admin: 02/13/17 15:09 Dose: 10 mg Ephedrine Sulfate (Ephedrine Sulfate) 5 - 10 mg IVPUSH ASDIRECTED PRN PRN Reason: IF SYSTOLIC BP LESS THAN 100 Stop: 02/13/17 18:00 Factor VIIa (Recombinant) (Novoseven Rt) Confirm Administered Dose 2 mcg IVPUSH .STK-MED ONE Stop: 02/13/17 18:06 Factor VIIa (Recombinant) (Novoseven Rt) Confirm Administered Dose 2 mcg IVPUSH .STK-MED ONE Stop: 02/13/17 18:07 Factor VIIa (Recombinant) (Novoseven Rt) 2,000 mcg IVPUSH ONETIME STA Stop: 02/13/17 18:22 Last Admin: 02/13/17 18:13 Dose: 2,000 mcg Fentanyl (Sublimaze) 100 mcg IVPUSH Q1H PRN PRN Reason: Pain (moderate 4-6) Fentanyl (Sublimaze) Confirm Administered Dose 100 mcg .ROUTE .STK-MED ONE Stop: 02/13/17 14:58 Hydromorphone HCl (Dilaudid Hand Engraver 15 Mg In Ns 30 Ml) Confirm Administered Dose 15 mg IV .STK-MED ONE Stop: 02/13/17 19:02 Last Admin: 02/13/17 22:30 Dose: Not Given Hydromorphone HCl (Dilaudid Hand Engraver 15 Mg In Ns 30 Ml) 15 mg IV ASDIRECTED PRN; Protocol PRN Reason: PAIN Hydromorphone HCl (Dilaudid Hand Engraver 15 Mg In Ns 30 Ml) 0 mg IV ASDIRECTED PRN; Protocol PRN Reason: [employer]ING AS[employer]BLER PAIN CONTROL Last Admin: 02/14/17 16:05 Dose: 15 mg Oxytocin/Sodium Chloride (Pitocin In Ns 20 Units/1,000 Ml) 20 unit in 1,000 mls @ 6 mls/hr IV TITRATE JAZ; 2 MUNITS/MIN PRN Reason: Protocol Last Admin: 02/13/17 14:17 Dose: 2 munits/min, 6 mls/hr Lactated Ringer's (Ringers, Lactated) 1,000 mls @ 125 mls/hr IV ASDIRECTED JAZ Last Admin: 02/13/17 14:20 Dose: 125 mls/hr Oxytocin/Sodium Chloride (Pitocin In Ns 20 Units/1,000 Ml) Confirm Administered Dose 20 unit in 1,000 mls @ as directed .ROUTE .STK-MED ONE Stop: 02/13/17 14:13 Last Admin: 02/13/17 14:17 Dose: Not Given Ropivacaine (Naropin 0.2%) Confirm Administered Dose 100 mls @ as directed .ROUTE .STK-MED ONE Stop: 02/13/17 14:58 Potassium Chloride/Dextrose/Sod Cl (D5 1/2 Ns W/ 20 Meq/L Kcl) Confirm Administered Dose 1,000 mls @ as directed .ROUTE .STK-MED ONE Stop: 02/13/17 20:39 Last Admin: 02/13/17 22:31 Dose: Not Given Lactated Ringer's (Ringers, Lactated) 500 mls @ 500 mls/hr IV .BOLUS JAZ Last Admin: 02/13/17 22:00 Dose: 500 mls/hr Potassium Chloride/Dextrose/Sod Cl (D5 1/2 Ns W/ 20 Meq/L Kcl) 1,000 mls @ 150 mls/hr IV ASDIRECTED JAZ Potassium Chloride/Dextrose/Sod Cl (D5 1/2 Ns W/ 20 Meq/L Kcl) 1,000 mls @ 150 mls/hr IV ASDIRECTED JAZ Last Admin: 02/14/17 04:01 Dose: 150 mls/hr Lidocaine HCl (Xylocaine 1%) Confirm Administered Dose 100 ml .ROUTE .STK-MED ONE Stop: 02/13/17 14:13 Last Admin: 02/13/17 22:31 Dose: Not Given Methylergonovine Maleate (Methergine) Confirm Administered Dose 0.2 mg .ROUTE .STK-MED ONE Stop: 02/13/17 18:35 Last Admin: 02/13/17 19:53 Dose: Not Given Methylergonovine Maleate (Methergine) Confirm Administered Dose 0.2 mg .ROUTE .STK-MED ONE Stop: 02/13/17 18:39 Last Admin: 02/13/17 20:38 Dose: Not Given Methylergonovine Maleate (Methergine) 0.2 mg IM ONETIME STA Stop: 02/13/17 19:55 Last Admin: 02/13/17 18:46 Dose: 0.2 mg Misoprostol (Cytotec) 50 mcg VAG ONETIME ONE Stop: 02/13/17 08:01 Last Admin: 02/13/17 08:04 Dose: 50 mcg Misoprostol (Cytotec) Confirm Administered Dose 25 mcg .ROUTE .STK-MED ONE Stop: 02/13/17 12:48 Last Admin: 02/13/17 12:51 Dose: Not Given Misoprostol (Cytotec) 25 mcg VAG ONETIME ONE Stop: 02/13/17 12:50 Last Admin: 02/13/17 13:22 Dose: 25 mcg Naloxone HCl (Narcan) Confirm Administered Dose 0.4 mg .ROUTE .STK-MED ONE Stop: 02/13/17 14:13 Last Admin: 02/13/17 22:31 Dose: Not Given Oxytocin (Pitocin) Confirm Administered Dose 10 unit .ROUTE .STK-MED ONE Stop: 02/13/17 14:13 Last Admin: 02/13/17 22:00 Dose: 10 unit Oxytocin (Pitocin) Confirm Administered Dose 10 unit .ROUTE .STK-MED ONE Stop: 02/13/17 19:11 Last Admin: 02/13/17 22:42 Dose: 10 unit Oxytocin (Pitocin) Confirm Administered Dose 20 unit .ROUTE .STK-MED ONE Stop: 02/13/17 16:42 Sodium Chloride (Normal Saline) 2,000 ml IV .STK-MED ONE Stop: 02/13/17 17:31 Last Admin: 02/13/17 17:30 Dose: 2,000 ml - Exam Wound/Incisions: Dressing Dry and Intact General: Alert, Oriented, Cooperative, No Acute Distress Lungs: Clear to Auscultation, Normal Respiratory Effort Cardiovascular: Regular Rate, Regular Rhythm GI/Abdominal Exam: Abnormal Bowel Sounds (Hypoactive, but present. ) Extremities: Normal Inspection Skin: Warm, Dry, Intact Neurological: No New Focal Deficit Psy/Mental Status: Alert, Normal Affect, Normal Mood - Problem List & Annotations (1) Status post hysterectomy SNOMED Code(s): 214507478, 806503395 Code(s): Z90.710 - ACQUIRED ABSENCE OF BOTH CERVIX AND UTERUS Status: Acute Current Visit: Yes - Problem List Review Problem List Initiated/Reviewed/Updated: Yes - My Orders Last 24 Hours: Active Orders 24 hr Category Date Time Status BASIC METABOLIC PANEL,BMP [CHEM] Routine Lab 02/16/17 05:11 Ordered CBC W/O DIFF,HEMOGRAM [HEME] Routine Lab 02/15/17 15:00 Ordered CBC W/O DIFF,HEMOGRAM [HEME] Routine Lab 02/16/17 05:11 Ordered HYDROmorphone/Normal Saline [Dilaudid [employer]ING [employer]ER 15 MG in NS Med 02/15/17 09:30 Active 30 ML] 0 mg IV ASDIRECTED Medication Orders Acetaminophen (Tylenol) 650 mg PO Q4H PRN PRN Reason: Pain (Mild 1-3) and fever Last Admin: 02/15/17 09:24 Dose: 650 mg Hydromorphone HCl (Dilaudid Hand Engraver 15 Mg In Ns 30 Ml) 0 mg IV ASDIRECTED [facility] PRN Reason: Protocol Dextrose/Sodium Chloride (Dextrose 5%-1/2 Ns) 1,000 mls @ 0 mls/hr IV ASDIRECTED [facility] PRN Reason: KVO Last Admin: 02/15/17 08:17 Dose: 125 mls/hr Infusion: 02/15/17 08:17 Dose: 125 mls/hr Admin: 02/15/17 00:19 Dose: 125 mls/hr Infusion: 02/14/17 19:26 Dose: 125 mls/hr Admin: 02/14/17 11:26 Dose: 125 mls/hr Levothyroxine Sodium 100 mcg/ (Levothyroxine Sodium 75 mcg) 175 mcg PO DAILY@ 0730 [facility] Last Admin: 02/15/17 08:17 Dose: 175 mcg Admin: 02/14/17 11:53 Dose: 175 mcg Naloxone HCl (Narcan) 0.1 mg IV ASDIRECTED PRN PRN Reason: decreased respiratory rate Ondansetron HCl (Zofran Odt) 4 mg PO Q4H PRN PRN Reason: Nausea/Vomiting Last Admin: 02/15/17 11:09 Dose: 4 mg Sodium Chloride (Saline Flush) 10 ml FLUSH ASDIRECTED PRN PRN Reason: Keep Vein Open - Assessment Assessment (Free Text/Narrative):: Hgb 10 last night, 9 this morning. Will check this afternoon and in AM. No obvious bleeding. Taking clear liquids without problem. - Plan Plan (Free Text/Narrative):: CBC at 15:00 Hours today. CBC, BMP in AM. TKO IV (large UOP). Leave Olvera in for now.
[2017-02-15] MEDS: Acetaminophen/HYDROcodone 325-5 MG Tab PO PRN (20:29)
[2017-02-16] MEDS: Acetaminophen/HYDROcodone 325-5 MG Tab PO PRN ×5 (00:41→20:41)
--- NOTE | 2017-02-16 07:44 | PCM.SURGPN ---
- General Info Date of Service: 02/16/17 Date of Surgery/Procedure: 02/13/17 POD#: 3 Post-Op Diagnosis: section followed by hysterectomy due to massive bleeding. Functional Status: Reports: Pain Controlled, Tolerating Diet (Liquid. NO flatus nor BM yet. ) - Review of Systems General: Reports: No Symptoms HEENT: Reports: No Symptoms Pulmonary: Reports: No Symptoms Cardiovascular: Reports: No Symptoms Gastrointestinal: Reports: Abdominal Pain (He back pain has resolved. ) Genitourinary: Reports: No Symptoms Musculoskeletal: Reports: No Symptoms Skin: Reports: No Symptoms Neurological: Reports: No Symptoms Psychiatric: Reports: No Symptoms - Patient Data Vitals - Most Recent: Last Vital Signs Temp 99.4 F 02/16/17 02:54 Pulse 78 02/16/17 02:54 Resp 20 02/16/17 02:54 BP 108/62 02/16/17 02:54 Pulse Ox 94 L 02/16/17 02:54 Weight - Most Recent: 228 lb I&O - Last 24 Hours: Intake & Output 02/15/17 02/16/17 02/16/17 22:59 06:59 14:59 Intake Total 1115 900 Output Total 500 750 Balance 615 150 Lab Results Last 24 Hrs: Laboratory Results - last 24 hr 02/15/17 02/16/17 02/16/17 Range/Units 15:00 04:10 04:10 WBC 14.9 H 10.3 (4.5-11.0) K/uL RBC 2.85 L 2.82 L (3.30-5.50) M/uL Hgb 8.7 L 8.4 L (12.0-15.0) g/dL Hct 25.7 L 25.6 L (36.0-48.0) % MCV 90 91 (80-98) fL MCH 31 30 (27-31) pg MCHC 34 33 (32-36) % Plt Count 150 157 (150-400) K/uL Sodium 142 (140-148) mmol/L Potassium 3.6 (3.6-5.2) mmol/L Chloride 108 (100-108) mmol/L Carbon Dioxide 26 (21-32) mmol/L Anion Gap 7.6 (5.0-14.0) mmol/L BUN 6 L (7-18) mg/dL Creatinine 0.6 (0.6-1.0) mg/dL Est Cr Clr Drug Dosing 118.57 mL/min Estimated GFR (MDRD) > 60 (>60) Glucose 78 (74-106) mg/dL Calcium 8.2 L (8.5-10.1) mg/dL Med Orders - Current: Current Medications Acetaminophen (Tylenol) 650 mg PO Q4H PRN PRN Reason: Pain (Mild 1-3) and fever Last Admin: 02/15/17 14:51 Dose: 650 mg Hydrocodone Bitart/Acetaminophen ([place] 325-5 Mg) 1 - 2 tab PO Q4H PRN PRN Reason: Pain Last Admin: 02/16/17 00:41 Dose: 2 tab Bisacodyl (Dulcolax) 10 mg RECTAL ONETIME ONE Stop: 02/16/17 07:41 Dextrose/Sodium Chloride (Dextrose 5%-1/2 Ns) 1,000 mls @ 0 mls/hr IV ASDIRECTED JAZ PRN Reason: KVO Last Admin: 02/15/17 08:17 Dose: 125 mls/hr Levothyroxine Sodium 100 mcg/ (Levothyroxine Sodium 75 mcg) 175 mcg PO DAILY@ 0730 JAZ Last Admin: 02/15/17 08:17 Dose: 175 mcg Naloxone HCl (Narcan) 0.1 mg IV ASDIRECTED PRN PRN Reason: decreased respiratory rate Ondansetron HCl (Zofran Odt) 4 mg PO Q4H PRN PRN Reason: Nausea/Vomiting Last Admin: 02/15/17 15:13 Dose: 4 mg Sodium Chloride (Saline Flush) 10 ml FLUSH ASDIRECTED PRN PRN Reason: Keep Vein Open Discontinued Medications Ephedrine Sulfate (Ephedrine Sulfate) Confirm Administered Dose 50 mg .ROUTE .STK-MED ONE Stop: 02/13/17 14:06 Last Admin: 02/13/17 15:09 Dose: 10 mg Ephedrine Sulfate (Ephedrine Sulfate) 5 - 10 mg IVPUSH ASDIRECTED PRN PRN Reason: IF SYSTOLIC BP LESS THAN 100 Stop: 02/13/17 18:00 Factor VIIa (Recombinant) (Novoseven Rt) Confirm Administered Dose 2 mcg IVPUSH .STK-MED ONE Stop: 02/13/17 18:06 Factor VIIa (Recombinant) (Novoseven Rt) Confirm Administered Dose 2 mcg IVPUSH .STK-MED ONE Stop: 02/13/17 18:07 Factor VIIa (Recombinant) (Novoseven Rt) 2,000 mcg IVPUSH ONETIME STA Stop: 02/13/17 18:22 Last Admin: 02/13/17 18:13 Dose: 2,000 mcg Fentanyl (Sublimaze) 100 mcg IVPUSH Q1H PRN PRN Reason: Pain (moderate 4-6) Fentanyl (Sublimaze) Confirm Administered Dose 100 mcg .ROUTE .STK-MED ONE Stop: 02/13/17 14:58 Hydromorphone HCl (Dilaudid Logging Supervisor 15 Mg In Ns 30 Ml) Confirm Administered Dose 15 mg IV .STK-MED ONE Stop: 02/13/17 19:02 Last Admin: 02/13/17 22:30 Dose: Not Given Hydromorphone HCl (Dilaudid Logging Supervisor 15 Mg In Ns 30 Ml) 15 mg IV ASDIRECTED PRN; Protocol PRN Reason: PAIN Hydromorphone HCl (Dilaudid Logging Supervisor 15 Mg In Ns 30 Ml) 0 mg IV ASDIRECTED PRN; Protocol PRN Reason: STONE GLUER PAIN CONTROL Last Admin: 02/14/17 16:05 Dose: 15 mg Hydromorphone HCl (Dilaudid Logging Supervisor 15 Mg In Ns 30 Ml) 0 mg IV ASDIRECTED JAZ PRN Reason: Protocol Last Admin: 02/15/17 13:50 Dose: 15 mg Oxytocin/Sodium Chloride (Pitocin In Ns 20 Units/1,000 Ml) 20 unit in 1,000 mls @ 6 mls/hr IV TITRATE JAZ; 2 MUNITS/MIN PRN Reason: Protocol Last Admin: 02/13/17 14:17 Dose: 2 munits/min, 6 mls/hr Lactated Ringer's (Ringers, Lactated) 1,000 mls @ 125 mls/hr IV ASDIRECTED JAZ Last Admin: 02/13/17 14:20 Dose: 125 mls/hr Oxytocin/Sodium Chloride (Pitocin In Ns 20 Units/1,000 Ml) Confirm Administered Dose 20 unit in 1,000 mls @ as directed .ROUTE .STK-MED ONE Stop: 02/13/17 14:13 Last Admin: 02/13/17 14:17 Dose: Not Given Ropivacaine (Naropin 0.2%) Confirm Administered Dose 100 mls @ as directed .ROUTE .STK-MED ONE Stop: 02/13/17 14:58 Potassium Chloride/Dextrose/Sod Cl (D5 1/2 Ns W/ 20 Meq/L Kcl) Confirm Administered Dose 1,000 mls @ as directed .ROUTE .STK-MED ONE Stop: 02/13/17 20:39 Last Admin: 02/13/17 22:31 Dose: Not Given Lactated Ringer's (Ringers, Lactated) 500 mls @ 500 mls/hr IV .BOLUS JAZ Last Admin: 02/13/17 22:00 Dose: 500 mls/hr Potassium Chloride/Dextrose/Sod Cl (D5 1/2 Ns W/ 20 Meq/L Kcl) 1,000 mls @ 150 mls/hr IV ASDIRECTED JAZ Potassium Chloride/Dextrose/Sod Cl (D5 1/2 Ns W/ 20 Meq/L Kcl) 1,000 mls @ 150 mls/hr IV ASDIRECTED JAZ Last Admin: 02/14/17 04:01 Dose: 150 mls/hr Lidocaine HCl (Xylocaine 1%) Confirm Administered Dose 100 ml .ROUTE .STK-MED ONE Stop: 02/13/17 14:13 Last Admin: 02/13/17 22:31 Dose: Not Given Methylergonovine Maleate (Methergine) Confirm Administered Dose 0.2 mg .ROUTE .STK-MED ONE Stop: 02/13/17 18:35 Last Admin: 02/13/17 19:53 Dose: Not Given Methylergonovine Maleate (Methergine) Confirm Administered Dose 0.2 mg .ROUTE .STK-MED ONE Stop: 02/13/17 18:39 Last Admin: 02/13/17 20:38 Dose: Not Given Methylergonovine Maleate (Methergine) 0.2 mg IM ONETIME STA Stop: 02/13/17 19:55 Last Admin: 02/13/17 18:46 Dose: 0.2 mg Misoprostol (Cytotec) 50 mcg VAG ONETIME ONE Stop: 02/13/17 08:01 Last Admin: 02/13/17 08:04 Dose: 50 mcg Misoprostol (Cytotec) Confirm Administered Dose 25 mcg .ROUTE .STK-MED ONE Stop: 02/13/17 12:48 Last Admin: 02/13/17 12:51 Dose: Not Given Misoprostol (Cytotec) 25 mcg VAG ONETIME ONE Stop: 02/13/17 12:50 Last Admin: 02/13/17 13:22 Dose: 25 mcg Naloxone HCl (Narcan) Confirm Administered Dose 0.4 mg .ROUTE .STK-MED ONE Stop: 02/13/17 14:13 Last Admin: 02/13/17 22:31 Dose: Not Given Oxytocin (Pitocin) Confirm Administered Dose 10 unit .ROUTE .STK-MED ONE Stop: 02/13/17 14:13 Last Admin: 02/13/17 22:00 Dose: 10 unit Oxytocin (Pitocin) Confirm Administered Dose 10 unit .ROUTE .STK-MED ONE Stop: 02/13/17 19:11 Last Admin: 02/13/17 22:42 Dose: 10 unit Oxytocin (Pitocin) Confirm Administered Dose 20 unit .ROUTE .STK-MED ONE Stop: 02/13/17 16:42 Sodium Chloride (Normal Saline) 2,000 ml IV .STK-MED ONE Stop: 02/13/17 17:31 Last Admin: 02/13/17 17:30 Dose: 2,000 ml - Exam Wound/Incisions: Dressing Dry and Intact Quality Assessment: Urine Catheter, DVT Prophylaxis (Refused SCD's and she will NOT be given Lovenox. ) General: Alert, Oriented, Cooperative, No Acute Distress Lungs: Clear to Auscultation, Normal Respiratory Effort Cardiovascular: Regular Rate, Regular Rhythm GI/Abdominal Exam: Normal Bowel Sounds (But hypoactive. ), No Distention Extremities: Normal Inspection Skin: Warm, Dry, Intact Psy/Mental Status: Alert, Normal Affect, Normal Mood - Problem List & Annotations (1) Status post hysterectomy SNOMED Code(s): 183842704, 457552303 Code(s): Z90.710 - ACQUIRED ABSENCE OF BOTH CERVIX AND UTERUS Status: Acute Current Visit: Yes - Problem List Review Problem List Initiated/Reviewed/Updated: Yes - My Orders Last 24 Hours: Active Orders 24 hr Category Date Time Status Transfer Patient (Change bed) [ADT] Routine ADT 02/15/17 15:19 Ordered Communication Order [RC] BID Care 02/15/17 17:00 Active Overnight Pulse Oximetry [RC] Click to Edit Care 02/15/17 15:23 Active Full Liquid Diet [DIET] Diet 02/15/17 Dinner Ordered Acetaminophen/HYDROcodone [[place] 325-5 MG] Med 02/15/17 15:18 Active 1 - 2 tab PO Q4H PRN Bisacodyl [Dulcolax] Med 02/16/17 07:40 Once 10 mg RECTAL ONETIME ONE Pulse Oximetry Continuous Monitoring [OM.PC] Routine Oth 02/15/17 15:22 Ordered Medication Orders Acetaminophen (Tylenol) 650 mg PO Q4H PRN PRN Reason: Pain (Mild 1-3) and fever Last Admin: 02/15/17 14:51 Dose: 650 mg Admin: 02/15/17 09:24 Dose: 650 mg Hydrocodone Bitart/Acetaminophen ([place] 325-5 Mg) 1 - 2 tab PO Q4H PRN PRN Reason: Pain Last Admin: 02/16/17 00:41 Dose: 2 tab Admin: 02/15/17 20:29 Dose: 1 tab Bisacodyl (Dulcolax) 10 mg RECTAL ONETIME ONE Stop: 02/16/17 07:41 Dextrose/Sodium Chloride (Dextrose 5%-1/2 Ns) 1,000 mls @ 0 mls/hr IV ASDIRECTED [facility] PRN Reason: KVO Last Admin: 02/15/17 08:17 Dose: 125 mls/hr Infusion: 02/15/17 08:17 Dose: 125 mls/hr Admin: 02/15/17 00:19 Dose: 125 mls/hr Infusion: 02/14/17 19:26 Dose: 125 mls/hr Admin: 02/14/17 11:26 Dose: 125 mls/hr Levothyroxine Sodium 100 mcg/ (Levothyroxine Sodium 75 mcg) 175 mcg PO DAILY@ 0730 [facility] Last Admin: 02/15/17 08:17 Dose: 175 mcg Admin: 02/14/17 11:53 Dose: 175 mcg Naloxone HCl (Narcan) 0.1 mg IV ASDIRECTED PRN PRN Reason: decreased respiratory rate Ondansetron HCl (Zofran Odt) 4 mg PO Q4H PRN PRN Reason: Nausea/Vomiting Last Admin: 02/15/17 15:13 Dose: 4 mg Admin: 02/15/17 11:09 Dose: 4 mg Sodium Chloride (Saline Flush) 10 ml FLUSH ASDIRECTED PRN PRN Reason: Keep Vein Open - Assessment Assessment (Free Text/Narrative):: Her Hgb is 8.4 from 8.7 yesterday. She appears well. - Plan Plan (Free Text/Narrative):: Dulcolax suppository. D/C Olvera.
[2017-02-16] MEDS ORDERED: Bisacodyl 10 MG Supp RECTAL ONE (08:00)
[2017-02-16] MEDS ORDERED: Lanolin 100% Cream 40 GM Tube TOP PRN (14:28)
[2017-02-16] MEDS: Ondansetron 4 MG Tab.DIS PO PRN ×2 (18:08→20:41)
[2017-02-16] MEDS: Acetaminophen 325 MG Tab PO PRN (18:16)
[2017-02-17] MEDS: Ondansetron 4 MG Tab.DIS PO PRN ×3 (01:50→12:04)
[2017-02-17] MEDS: Acetaminophen/HYDROcodone 325-5 MG Tab PO PRN (03:45)
[2017-02-17] MEDS: Docusate Sodium 100 MG Cap PO SCH ×3 (05:47→21:52)
[2017-02-17] MEDS: Acetaminophen 325 MG Tab PO PRN ×2 (09:01→12:46)
[2017-02-17] MEDS: Bisacodyl 10 MG Supp RECTAL SCH ×2 (12:04→21:52)
[2017-02-17] MEDS: D5 1/2 NS w/ 20 mEq/L KCl 1,000 ML IV SCH ×2 (12:11→20:03)
--- NOTE | 2017-02-17 14:36 | CR ---
There are dilated small bowel loops with air-fluid levels. Some gaseous distention of the colon. Find ings could indicate ileus or obstruction. Postsurgical change with clips.
[2017-02-17] MEDS ORDERED: Benzocaine/Cetylpyridinium/Menthol Lozenge MUCMEM PRN (15:11)
--- NOTE | 2017-02-17 16:10 | PCM.SURGPN ---
- General Info Date of Service: 02/17/17 Date of Surgery/Procedure: 02/13/17 POD#: 4 Post-Op Diagnosis: Emergency section follow up by hysterectomy for bleeding. Admission Diagnosis/Problem: Labor established Functional Status: Reports: Pain Controlled, Ambulating, Urinating, New Symptoms (Vomited. ). Denies: Tolerating Diet - Review of Systems General: Reports: Other (Nausea and vomiting) Pulmonary: Reports: No Symptoms Cardiovascular: Reports: No Symptoms Gastrointestinal: Reports: Nausea, Vomiting, Other (Had bowel movements X 2. ) Genitourinary: Reports: No Symptoms Musculoskeletal: Reports: No Symptoms Skin: Reports: No Symptoms Neurological: Reports: No Symptoms Psychiatric: Reports: No Symptoms - Patient Data Vitals - Most Recent: Last Vital Signs Temp 98.4 F 02/17/17 15:42 Pulse 102 H 02/17/17 15:42 Resp 18 02/17/17 15:42 BP 121/76 02/17/17 15:42 Pulse Ox 96 02/17/17 15:42 Weight - Most Recent: 228 lb I&O - Last 24 Hours: Intake & Output 02/17/17 02/17/17 02/17/17 06:59 14:59 22:59 Intake Total 400 Output Total 200 1300 Balance 200 -1300 Lab Results Last 24 Hrs: Laboratory Results - last 24 hr 02/13/17 02/17/17 02/17/17 Range/Units 17:09 05:59 05:59 WBC 6.5 (4.5-11.0) K/uL RBC 3.22 L (3.30-5.50) M/uL Hgb 9.7 L (12.0-15.0) g/dL Hct 29.2 L (36.0-48.0) % MCV 91 (80-98) fL MCH 30 (27-31) pg MCHC 33 (32-36) % Plt Count 211 (150-400) K/uL Sodium 139 L (140-148) mmol/L Potassium 3.9 (3.6-5.2) mmol/L Chloride 105 (100-108) mmol/L Carbon Dioxide 28 (21-32) mmol/L Anion Gap 9.9 (5.0-14.0) mmol/L BUN 11 D (7-18) mg/dL Creatinine 0.7 (0.6-1.0) mg/dL Est Cr Clr Drug Dosing 101.63 mL/min Estimated GFR (MDRD) > 60 (>60) Glucose 98 (74-106) mg/dL Calcium 8.3 L (8.5-10.1) mg/dL Crossmatch See Detail Med Orders - Current: Current Medications Acetaminophen (Tylenol) 650 mg PO Q4H PRN PRN Reason: Pain (Mild 1-3) and fever Last Admin: 02/17/17 12:46 Dose: 650 mg Hydrocodone Bitart/Acetaminophen ([place] 325-5 Mg) 1 - 2 tab PO Q4H PRN PRN Reason: Pain Last Admin: 02/17/17 03:45 Dose: 2 tab Benzocaine/Menthol (Cepacol Sore Throat) 1 lozenge MUCMEM 6XDAY PRN PRN Reason: Pain Bisacodyl (Dulcolax) 10 mg RECTAL BID [facility] Last Admin: 02/17/17 12:04 Dose: 10 mg Docusate Sodium (Colace) 100 mg PO BID [facility] Last Admin: 02/17/17 09:04 Dose: Not Given Emollient Ointment (Lansinoh Hpa) 0 gm TOP ASDIRECTED PRN PRN Reason: Pain (mild 1-3) Potassium Chloride/Dextrose/Sod Cl (D5 1/2 Ns W/ 20 Meq/L Kcl) 1,000 mls @ 125 mls/hr IV ASDIRECTED [facility] Last Admin: 02/17/17 12:11 Dose: 125 mls/hr Levothyroxine Sodium 100 mcg/ (Levothyroxine Sodium 75 mcg) 175 mcg PO DAILY@ 0730 [facility] Last Admin: 02/17/17 09:02 Dose: 175 mcg Naloxone HCl (Narcan) 0.1 mg IV ASDIRECTED PRN PRN Reason: decreased respiratory rate Ondansetron HCl (Zofran Odt) 4 mg PO Q4H PRN PRN Reason: Nausea/Vomiting Last Admin: 02/17/17 12:04 Dose: 4 mg Sodium Chloride (Saline Flush) 10 ml FLUSH ASDIRECTED PRN PRN Reason: Keep Vein Open Discontinued Medications Bisacodyl (Dulcolax) 10 mg RECTAL ONETIME ONE Stop: 02/16/17 08:01 Last Admin: 02/16/17 10:25 Dose: 10 mg Ephedrine Sulfate (Ephedrine Sulfate) Confirm Administered Dose 50 mg .ROUTE .STK-MED ONE Stop: 02/13/17 14:06 Last Admin: 02/13/17 15:09 Dose: 10 mg Ephedrine Sulfate (Ephedrine Sulfate) 5 - 10 mg IVPUSH ASDIRECTED PRN PRN Reason: IF SYSTOLIC BP LESS THAN 100 Stop: 02/13/17 18:00 Factor VIIa (Recombinant) (Novoseven Rt) Confirm Administered Dose 2 mcg IVPUSH .STK-MED ONE Stop: 02/13/17 18:06 Factor VIIa (Recombinant) (Novoseven Rt) Confirm Administered Dose 2 mcg IVPUSH .STK-MED ONE Stop: 02/13/17 18:07 Factor VIIa (Recombinant) (Novoseven Rt) 2,000 mcg IVPUSH ONETIME STA Stop: 02/13/17 18:22 Last Admin: 02/13/17 18:13 Dose: 2,000 mcg Fentanyl (Sublimaze) 100 mcg IVPUSH Q1H PRN PRN Reason: Pain (moderate 4-6) Fentanyl (Sublimaze) Confirm Administered Dose 100 mcg .ROUTE .STK-MED ONE Stop: 02/13/17 14:58 Hydromorphone HCl (Dilaudid Cryptologic Technician Operator/Analyst 15 Mg In Ns 30 Ml) Confirm Administered Dose 15 mg IV .STK-MED ONE Stop: 02/13/17 19:02 Last Admin: 02/13/17 22:30 Dose: Not Given Hydromorphone HCl (Dilaudid Cryptologic Technician Operator/Analyst 15 Mg In Ns 30 Ml) 15 mg IV ASDIRECTED PRN; Protocol PRN Reason: PAIN Hydromorphone HCl (Dilaudid Cryptologic Technician Operator/Analyst 15 Mg In Ns 30 Ml) 0 mg IV ASDIRECTED PRN; Protocol PRN 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: 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 Last Admin: 02/14/17 16:05 Dose: 15 mg Hydromorphone HCl (Dilaudid Cryptologic Technician Operator/Analyst 15 Mg In Ns 30 Ml) 0 mg IV ASDIRECTED JAZ PRN Reason: Protocol Last Admin: 02/15/17 13:50 Dose: 15 mg Oxytocin/Sodium Chloride (Pitocin In Ns 20 Units/1,000 Ml) 20 unit in 1,000 mls @ 6 mls/hr IV TITRATE JAZ; 2 MUNITS/MIN PRN Reason: Protocol Last Admin: 02/13/17 14:17 Dose: 2 munits/min, 6 mls/hr Lactated Ringer's (Ringers, Lactated) 1,000 mls @ 125 mls/hr IV ASDIRECTED JAZ Last Admin: 02/13/17 14:20 Dose: 125 mls/hr Oxytocin/Sodium Chloride (Pitocin In Ns 20 Units/1,000 Ml) Confirm Administered Dose 20 unit in 1,000 mls @ as directed .ROUTE .ST-MED ONE Stop: 02/13/17 14:13 Last Admin: 02/13/17 14:17 Dose: Not Given Ropivacaine (Naropin 0.2%) Confirm Administered Dose 100 mls @ as directed .ROUTE .ST-MED ONE Stop: 02/13/17 14:58 Potassium Chloride/Dextrose/Sod Cl (D5 1/2 Ns W/ 20 Meq/L Kcl) Confirm Administered Dose 1,000 mls @ as directed .ROUTE .[facility]-MED ONE Stop: 02/13/17 20:39 Last Admin: 02/13/17 22:31 Dose: Not Given Lactated Ringer's (Ringers, Lactated) 500 mls @ 500 mls/hr IV .BOLUS JAZ Last Admin: 02/13/17 22:00 Dose: 500 mls/hr Potassium Chloride/Dextrose/Sod Cl (D5 1/2 Ns W/ 20 Meq/L Kcl) 1,000 mls @ 150 mls/hr IV ASDIRECTED JAZ Potassium Chloride/Dextrose/Sod Cl (D5 1/2 Ns W/ 20 Meq/L Kcl) 1,000 mls @ 150 mls/hr IV ASDIRECTED JAZ Last Admin: 02/14/17 04:01 Dose: 150 mls/hr Dextrose/Sodium Chloride (Dextrose 5%-1/2 Ns) 1,000 mls @ 0 mls/hr IV ASDIRECTED JAZ PRN Reason: KVO Last Admin: 02/15/17 08:17 Dose: 125 mls/hr Lidocaine HCl (Xylocaine 1%) Confirm Administered Dose 100 ml .ROUTE .ST-MED ONE Stop: 02/13/17 14:13 Last Admin: 02/13/17 22:31 Dose: Not Given Methylergonovine Maleate (Methergine) Confirm Administered Dose 0.2 mg .ROUTE .[facility]-MED ONE Stop: 02/13/17 18:35 Last Admin: 02/13/17 19:53 Dose: Not Given Methylergonovine Maleate (Methergine) Confirm Administered Dose 0.2 mg .ROUTE .STK-MED ONE Stop: 02/13/17 18:39 Last Admin: 02/13/17 20:38 Dose: Not Given Methylergonovine Maleate (Methergine) 0.2 mg IM ONETIME STA Stop: 02/13/17 19:55 Last Admin: 02/13/17 18:46 Dose: 0.2 mg Misoprostol (Cytotec) 50 mcg VAG ONETIME ONE Stop: 02/13/17 08:01 Last Admin: 02/13/17 08:04 Dose: 50 mcg Misoprostol (Cytotec) Confirm Administered Dose 25 mcg .ROUTE .STK-MED ONE Stop: 02/13/17 12:48 Last Admin: 02/13/17 12:51 Dose: Not Given Misoprostol (Cytotec) 25 mcg VAG ONETIME ONE Stop: 02/13/17 12:50 Last Admin: 02/13/17 13:22 Dose: 25 mcg Naloxone HCl (Narcan) Confirm Administered Dose 0.4 mg .ROUTE .STK-MED ONE Stop: 02/13/17 14:13 Last Admin: 02/13/17 22:31 Dose: Not Given Oxytocin (Pitocin) Confirm Administered Dose 10 unit .ROUTE .STK-MED ONE Stop: 02/13/17 14:13 Last Admin: 02/13/17 22:00 Dose: 10 unit Oxytocin (Pitocin) Confirm Administered Dose 10 unit .ROUTE .STK-MED ONE Stop: 02/13/17 19:11 Last Admin: 02/13/17 22:42 Dose: 10 unit Oxytocin (Pitocin) Confirm Administered Dose 20 unit .ROUTE .STK-MED ONE Stop: 02/13/17 16:42 Sodium Chloride (Normal Saline) 2,000 ml IV .STK-MED ONE Stop: 02/13/17 17:31 Last Admin: 02/13/17 17:30 Dose: 2,000 ml - Exam Wound/Incisions: Healing Well General: Alert, Oriented, Cooperative, No Acute Distress Lungs: Clear to Auscultation, Normal Respiratory Effort Cardiovascular: Regular Rate, Regular Rhythm GI/Abdominal Exam: No: Normal Bowel Sounds (Quiet. ) Extremities: Normal Inspection Skin: Warm, Intact Psy/Mental Status: Alert, Other (Withdrawn with flat affect. ) - Problem List & Annotations (1) Status post hysterectomy SNOMED Code(s): 619806701, 345943071 Code(s): Z90.710 - ACQUIRED ABSENCE OF BOTH CERVIX AND UTERUS Status: Acute Current Visit: Yes - Problem List Review Problem List Initiated/Reviewed/Updated: Yes - My Orders Last 24 Hours: Active Orders 24 hr Category Date Time Status Gastrointestinal Tube Mgmt [RC] ASDIRECTED Care 02/17/17 14:25 Active Abdomen 2V AP Flat Upright [CR] Timed Exams 02/18/17 05:00 Ordered Benzocaine/Cetylpyrd/Menthol [Cepacol Sore Throat] Med 02/17/17 15:11 Active 1 lozenge MUCMEM 6XDAY PRN Bisacodyl [Dulcolax] Med 02/17/17 09:00 Active 10 mg RECTAL BID D5 1/2 NS w/ 20 mEq/L KCl 1,000 ml Med 02/17/17 08:45 Active IV ASDIRECTED Docusate Sodium [Colace] Med 02/16/17 21:15 Active 100 mg PO BID Nasogastric Orogastric Tube Insertion [OM.PC] Routine Oth 02/17/17 14:25 Ordered Medication Orders Acetaminophen (Tylenol) 650 mg PO Q4H PRN PRN Reason: Pain (Mild 1-3) and fever Last Admin: 02/17/17 12:46 Dose: 650 mg Admin: 02/17/17 09:01 Dose: 650 mg Admin: 02/16/17 18:16 Dose: 650 mg Admin: 02/15/17 14:51 Dose: 650 mg Admin: 02/15/17 09:24 Dose: 650 mg Hydrocodone Bitart/Acetaminophen ([place] 325-5 Mg) 1 - 2 tab PO Q4H PRN PRN Reason: Pain Last Admin: 02/17/17 03:45 Dose: 2 tab Admin: 02/16/17 20:41 Dose: 1 tab Admin: 02/16/17 14:21 Dose: 2 tab Admin: 02/16/17 10:49 Dose: 1 tab Admin: 02/16/17 08:42 Dose: 1 tab Admin: 02/16/17 00:41 Dose: 2 tab Admin: 02/15/17 20:29 Dose: 1 tab Benzocaine/Menthol (Cepacol Sore Throat) 1 lozenge MUCMEM 6XDAY PRN PRN Reason: Pain Bisacodyl (Dulcolax) 10 mg RECTAL BID [facility] Last Admin: 02/17/17 12:04 Dose: 10 mg Docusate Sodium (Colace) 100 mg PO BID [facility] Last Admin: 02/17/17 09:04 Dose: Admin: 02/17/17 05:47 Dose: 100 mg Emollient Ointment (Lansinoh Hpa) 0 gm TOP ASDIRECTED PRN PRN Reason: Pain (mild 1-3) Potassium Chloride/Dextrose/Sod Cl (D5 1/2 Ns W/ 20 Meq/L Kcl) 1,000 mls @ 125 mls/hr IV ASDIRECTED [facility] Last Admin: 02/17/17 12:11 Dose: 125 mls/hr Levothyroxine Sodium 100 mcg/ (Levothyroxine Sodium 75 mcg) 175 mcg PO DAILY@ 0730 [facility] Last Admin: 02/17/17 09:02 Dose: 175 mcg Admin: 02/16/17 08:38 Dose: 175 mcg Admin: 02/15/17 08:17 Dose: 175 mcg Admin: 02/14/17 11:53 Dose: 175 mcg Naloxone HCl (Narcan) 0.1 mg IV ASDIRECTED PRN PRN Reason: decreased respiratory rate Ondansetron HCl (Zofran Odt) 4 mg PO Q4H PRN PRN Reason: Nausea/Vomiting Last Admin: 02/17/17 12:04 Dose: 4 mg Admin: 02/17/17 08:30 Dose: 4 mg Admin: 02/17/17 01:50 Dose: 4 mg Admin: 02/16/17 20:41 Dose: 4 mg Admin: 02/16/17 18:08 Dose: 4 mg Admin: 02/15/17 15:13 Dose: 4 mg Admin: 02/15/17 11:09 Dose: 4 mg Sodium Chloride (Saline Flush) 10 ml FLUSH ASDIRECTED PRN PRN Reason: Keep Vein Open - Assessment Assessment (Free Text/Narrative):: Her Hgb is doing fine. She vomited twice and we placed an NG tube. Her abdomen is now quiet and abdominal films show consistent with ileus. - Plan Plan (Free Text/Narrative):: Dr. Wan will follow in my absence. Continue with the NG tube. Increased IV fluid.
[2017-02-17] MEDS ORDERED: Morphine 2 MG/ML Syringe IVPUSH PRN (16:12)
[2017-02-17] MEDS ORDERED: Phenol/Sodium Phenolate Mouthwash 180 ML Bottle PO PRN ×2 (20:55→21:00)
[2017-02-18] MEDS: D5 1/2 NS w/ 20 mEq/L KCl 1,000 ML IV SCH ×3 (04:29→21:33)
[2017-02-18] MEDS ORDERED: Metoclopramide 10 MG/2 ML SDV IVPUSH ONE (07:15)
[2017-02-18] MEDS ORDERED: Erythromycin Ethylsuccinate Susp 400 MG/5 ML 100 ML Bottle PO SCH (08:00)
[2017-02-18] MEDS: Acetaminophen 325 MG Tab PO PRN ×2 (10:02→20:28)
[2017-02-18] MEDS: Erythromycin Ethylsuccinate Susp 400 MG/5 ML 100 ML Bottle PO SCH ×3 (10:03→21:27)
[2017-02-18] MEDS: Docusate Sodium 100 MG Cap PO SCH ×2 (10:15→21:28)
--- NOTE | 2017-02-18 10:52 | PCM.PNPP ---
<Zhane Mccormack - Last Filed: 02/18/17 10:47> - General Info Date of Service: 02/18/17 (PPD 5) Functional Status: Reports: Pain Controlled, Ambulating, Urinating - Review of Systems General: Reports: Appetite. Denies: Fatigue HEENT: Reports: Sore Throat (ng tube was in place; has been removed) Pulmonary: Reports: No Symptoms Cardiovascular: Reports: No Symptoms Gastrointestinal: Reports: Other (ng tube out this morning, states she has bowel activity) Genitourinary: Reports: No Symptoms Musculoskeletal: Reports: No Symptoms Skin: Reports: No Symptoms Neurological: Reports: Tingling Psychiatric: Reports: Other (affect has improved dramatically, happy, smiling, willing to participate in cares) - General Info Date of Service: 02/18/17 - Patient Data Vital Signs - Most Recent: Last Vital Signs Temp 99 F 02/18/17 07:12 Pulse 101 H 02/18/17 07:12 Resp 16 02/18/17 07:12 BP 98/59 L 02/18/17 07:12 Pulse Ox 94 L 02/18/17 07:12 Weight - Most Recent: 228 lb I&O - Last 24 Hours: Intake & Output 02/17/17 02/18/17 02/18/17 22:59 06:59 14:59 Intake Total 701 1418 Output Total 300 50 Balance 401 1368 Lab Results - Last 24 Hours: Laboratory Results - last 24 hr 02/18/17 02/18/17 Range/Units 04:20 04:20 WBC 5.9 (4.5-11.0) K/uL RBC 2.85 L (3.30-5.50) M/uL Hgb 8.4 L (12.0-15.0) g/dL Hct 26.4 L (36.0-48.0) % MCV 93 (80-98) fL MCH 30 (27-31) pg MCHC 32 (32-36) % Plt Count 246 (150-400) K/uL Sodium 141 (140-148) mmol/L Potassium 3.6 (3.6-5.2) mmol/L Chloride 109 H (100-108) mmol/L Carbon Dioxide 26 (21-32) mmol/L Anion Gap 9.6 (5.0-14.0) mmol/L BUN 9 (7-18) mg/dL Creatinine 0.7 (0.6-1.0) mg/dL Est Cr Clr Drug Dosing 101.63 mL/min Estimated GFR (MDRD) > 60 (>60) Glucose 93 (74-106) mg/dL Calcium 7.7 L (8.5-10.1) mg/dL Total Bilirubin 0.4 (0.2-1.0) mg/dL AST 19 (15-37) U/L ALT 19 (12-78) U/L Alkaline Phosphatase 42 L (46-116) U/L Total Protein 4.6 L (6.4-8.2) g/dL Albumin 1.4 L (3.4-5.0) g/dL Globulin 3.2 (2.3-3.5) g/dL Albumin/Globulin Ratio 0.4 L (1.2-2.2) Med Orders - Current: Current Medications Acetaminophen (Tylenol) 650 mg PO Q4H PRN PRN Reason: Pain (Mild 1-3) and fever Last Admin: 02/18/17 10:02 Dose: 650 mg Hydrocodone Bitart/Acetaminophen ([place] 325-5 Mg) 1 - 2 tab PO Q4H PRN PRN Reason: Pain Last Admin: 02/17/17 03:45 Dose: 2 tab Benzocaine/Menthol (Cepacol Sore Throat) 1 lozenge MUCMEM 6XDAY PRN PRN Reason: Pain Bisacodyl (Dulcolax) 10 mg RECTAL BID [facility] Last Admin: 02/17/17 21:52 Dose: Not Given Docusate Sodium (Colace) 100 mg PO BID [facility] Last Admin: 02/18/17 10:15 Dose: 100 mg Emollient Ointment (Lansinoh Hpa) 0 gm TOP ASDIRECTED PRN PRN Reason: Pain (mild 1-3) Erythromycin Ethylsuccinate (Eryped 400) 125 mg PO Q8HR [facility] Last Admin: 02/18/17 10:03 Dose: 125 mg Potassium Chloride/Dextrose/Sod Cl (D5 1/2 Ns W/ 20 Meq/L Kcl) 1,000 mls @ 125 mls/hr IV ASDIRECTED [facility] Last Admin: 02/18/17 04:29 Dose: 125 mls/hr Albumin Human (Albumin 25%) 25 gm in 100 mls @ 25 mls/hr IV Q24H [facility] Stop: 02/20/17 12:59 Last Admin: 02/18/17 10:08 Dose: 25 mls/hr Albumin Human (Albumin 25%) 25 gm in 100 mls @ 25 mls/hr IV Q24H [facility] Stop: 02/20/17 16:59 Levothyroxine Sodium 100 mcg/ (Levothyroxine Sodium 75 mcg) 175 mcg PO DAILY@ 0730 [facility] Last Admin: 02/18/17 08:09 Dose: 175 mcg Metoclopramide HCl (Reglan) 10 mg IVPUSH Q6H [facility] Morphine Sulfate (Morphine) 1 mg IVPUSH Q1H PRN PRN Reason: Abdominal Pain Naloxone HCl (Narcan) 0.1 mg IV ASDIRECTED PRN PRN Reason: decreased respiratory rate Ondansetron HCl (Zofran Odt) 4 mg PO Q4H PRN PRN Reason: Nausea/Vomiting Last Admin: 02/17/17 12:04 Dose: 4 mg Phenol (Phenaseptic Liquid) 0 ml PO ASDIRECTED PRN PRN Reason: Sore Throat Last Admin: 02/17/17 21:18 Dose: 1 spray Sodium Chloride (Saline Flush) 10 ml FLUSH ASDIRECTED PRN PRN Reason: Keep Vein Open Discontinued Medications Bisacodyl (Dulcolax) 10 mg RECTAL ONETIME ONE Stop: 02/16/17 08:01 Last Admin: 02/16/17 10:25 Dose: 10 mg Ephedrine Sulfate (Ephedrine Sulfate) Confirm Administered Dose 50 mg .ROUTE .STK-MED ONE Stop: 02/13/17 14:06 Last Admin: 02/13/17 15:09 Dose: 10 mg Ephedrine Sulfate (Ephedrine Sulfate) 5 - 10 mg IVPUSH ASDIRECTED PRN PRN Reason: IF SYSTOLIC BP LESS THAN 100 Stop: 02/13/17 18:00 Factor VIIa (Recombinant) (Novoseven Rt) Confirm Administered Dose 2 mcg IVPUSH .STK-MED ONE Stop: 02/13/17 18:06 Factor VIIa (Recombinant) (Novoseven Rt) Confirm Administered Dose 2 mcg IVPUSH .STK-MED ONE Stop: 02/13/17 18:07 Factor VIIa (Recombinant) (Novoseven Rt) 2,000 mcg IVPUSH ONETIME STA Stop: 02/13/17 18:22 Last Admin: 02/13/17 18:13 Dose: 2,000 mcg Fentanyl (Sublimaze) 100 mcg IVPUSH Q1H PRN PRN Reason: Pain (moderate 4-6) Fentanyl (Sublimaze) Confirm Administered Dose 100 mcg .ROUTE .STK-MED ONE Stop: 02/13/17 14:58 Hydromorphone HCl (Dilaudid Plush Finisher 15 Mg In Ns 30 Ml) Confirm Administered Dose 15 mg IV .STK-MED ONE Stop: 02/13/17 19:02 Last Admin: 02/13/17 22:30 Dose: Not Given Hydromorphone HCl (Dilaudid Plush Finisher 15 Mg In Ns 30 Ml) 15 mg IV ASDIRECTED PRN; Protocol PRN Reason: PAIN Hydromorphone HCl (Dilaudid Plush Finisher 15 Mg In Ns 30 Ml) 0 mg IV ASDIRECTED PRN; Protocol PRN 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: 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 Last Admin: 02/14/17 16:05 Dose: 15 mg Hydromorphone HCl (Dilaudid Plush Finisher 15 Mg In Ns 30 Ml) 0 mg IV ASDIRECTED JAZ PRN Reason: Protocol Last Admin: 02/15/17 13:50 Dose: 15 mg Oxytocin/Sodium Chloride (Pitocin In Ns 20 Units/1,000 Ml) 20 unit in 1,000 mls @ 6 mls/hr IV TITRATE JAZ; 2 MUNITS/MIN PRN Reason: Protocol Last Admin: 02/13/17 14:17 Dose: 2 munits/min, 6 mls/hr Lactated Ringer's (Ringers, Lactated) 1,000 mls @ 125 mls/hr IV ASDIRECTED JAZ Last Admin: 02/13/17 14:20 Dose: 125 mls/hr Oxytocin/Sodium Chloride (Pitocin In Ns 20 Units/1,000 Ml) Confirm Administered Dose 20 unit in 1,000 mls @ as directed .ROUTE .STK-MED ONE Stop: 02/13/17 14:13 Last Admin: 02/13/17 14:17 Dose: Not Given Ropivacaine (Naropin 0.2%) Confirm Administered Dose 100 mls @ as directed .ROUTE .STK-MED ONE Stop: 02/13/17 14:58 Potassium Chloride/Dextrose/Sod Cl (D5 1/2 Ns W/ 20 Meq/L Kcl) Confirm Administered Dose 1,000 mls @ as directed .ROUTE .STK-MED ONE Stop: 02/13/17 20:39 Last Admin: 02/13/17 22:31 Dose: Not Given Lactated Ringer's (Ringers, Lactated) 500 mls @ 500 mls/hr IV .BOLUS JAZ Last Admin: 02/13/17 22:00 Dose: 500 mls/hr Potassium Chloride/Dextrose/Sod Cl (D5 1/2 Ns W/ 20 Meq/L Kcl) 1,000 mls @ 150 mls/hr IV ASDIRECTED JAZ Potassium Chloride/Dextrose/Sod Cl (D5 1/2 Ns W/ 20 Meq/L Kcl) 1,000 mls @ 150 mls/hr IV ASDIRECTED JAZ Last Admin: 02/14/17 04:01 Dose: 150 mls/hr Dextrose/Sodium Chloride (Dextrose 5%-1/2 Ns) 1,000 mls @ 0 mls/hr IV ASDIRECTED JAZ PRN Reason: KVO Last Admin: 02/15/17 08:17 Dose: 125 mls/hr Lidocaine HCl (Xylocaine 1%) Confirm Administered Dose 100 ml .ROUTE .STK-MED ONE Stop: 02/13/17 14:13 Last Admin: 02/13/17 22:31 Dose: Not Given Methylergonovine Maleate (Methergine) Confirm Administered Dose 0.2 mg .ROUTE .STK-MED ONE Stop: 02/13/17 18:35 Last Admin: 02/13/17 19:53 Dose: Not Given Methylergonovine Maleate (Methergine) Confirm Administered Dose 0.2 mg .ROUTE .STK-MED ONE Stop: 02/13/17 18:39 Last Admin: 02/13/17 20:38 Dose: Not Given Methylergonovine Maleate (Methergine) 0.2 mg IM ONETIME STA Stop: 02/13/17 19:55 Last Admin: 02/13/17 18:46 Dose: 0.2 mg Metoclopramide HCl (Reglan) 10 mg IVPUSH ONETIME ONE Stop: 02/18/17 07:16 Last Admin: 02/18/17 07:36 Dose: 10 mg Misoprostol (Cytotec) 50 mcg VAG ONETIME ONE Stop: 02/13/17 08:01 Last Admin: 02/13/17 08:04 Dose: 50 mcg Misoprostol (Cytotec) Confirm Administered Dose 25 mcg .ROUTE .STK-MED ONE Stop: 02/13/17 12:48 Last Admin: 02/13/17 12:51 Dose: Not Given Misoprostol (Cytotec) 25 mcg VAG ONETIME ONE Stop: 02/13/17 12:50 Last Admin: 02/13/17 13:22 Dose: 25 mcg Naloxone HCl (Narcan) Confirm Administered Dose 0.4 mg .ROUTE .STK-MED ONE Stop: 02/13/17 14:13 Last Admin: 02/13/17 22:31 Dose: Not Given Oxytocin (Pitocin) Confirm Administered Dose 10 unit .ROUTE .STK-MED ONE Stop: 02/13/17 14:13 Last Admin: 02/13/17 22:00 Dose: 10 unit Oxytocin (Pitocin) Confirm Administered Dose 10 unit .ROUTE .STK-MED ONE Stop: 02/13/17 19:11 Last Admin: 02/13/17 22:42 Dose: 10 unit Oxytocin (Pitocin) Confirm Administered Dose 20 unit .ROUTE .STK-MED ONE Stop: 02/13/17 16:42 Phenol (Phenaseptic Liquid) 177 ml PO ASDIRECTED PRN PRN Reason: Sore Throat Sodium Chloride (Normal Saline) 2,000 ml IV .STK-MED ONE Stop: 02/13/17 17:31 Last Admin: 02/13/17 17:30 Dose: 2,000 ml - Infant Interaction Disposition, : [place] in Room with Family Infant Interaction: Holding Infant Infant Feeding: Breastfed ; Nursed Well Support Person: , Mother - Recovery Exam Lochia Amount: Small Lochia Color: Rubra/Red Perineum Description: Intact, Minimal Bruising/Swelling Bladder Status: Voiding Urinary Elimination: Voided - Exam General: Alert, Oriented, Cooperative Neck: Supple Lungs: Normal Respiratory Effort GI/Abdominal Exam: Normal Bowel Sounds Extremities: Normal Inspection Skin: Warm, Dry Neurological: No New Focal Deficit Psy/Mental Status: Alert, Normal Affect, Normal Mood (improved mood from previous days, interacting and smiling, willing to participate in cares) - Problem List & Annotations (1) Placenta accreta affecting delivery SNOMED Code(s): 03382870 Code(s): O43.219 - PLACENTA ACCRETA, UNSPECIFIED TRIMESTER Status: Acute Current Visit: Yes (2) delivery delivered SNOMED Code(s): 725483124 Code(s): O82 - ENCOUNTER FOR DELIVERY WITHOUT INDICATION Status: Acute Current Visit: Yes (3) Status post hysterectomy SNOMED Code(s): 941430029, 443731578 Code(s): Z90.710 - ACQUIRED ABSENCE OF BOTH CERVIX AND UTERUS Status: Acute Current Visit: Yes - Problem List Review Problem List Initiated/Reviewed/Updated: Yes - Assessment Assessment:: 02/18/17 s/p hysterectomy pathology showed accreta placenta, which was source of post- hemorrhage. Ileus resolved, as evidenced by bowel sounds and bowel activity; NG tube removed this morning Hb 8.4, but doing well with improved energy and mood; ambulating. Has incisional pain,but normal for post-surgery. Managed by Tylenol Breastmilk in and baby is feeding well. No concerns. - Plan Plan:: 02/13/17 26 year old 40 2/7 weeks presents for planned induction. Adequate care. History of hypothyroid, controlled during . Labs: ABO A pos, GBS neg, HIV neg, Rubella immune. CE /0 anterior, head down Baseline FHT 145 moderate variability, Cat one strip Bishops score 9 Plan Misoprostol 50 mcg this morning vaginally Reassess at noon, may repeat dose. Epidural later today. Plan for vaginal delivery. 02/18/17 Continue to encourage ambulation and eating small meals as tolerated. Support . Discharge within 24-48 hrs pending surgical consult. <Dominique Marroquin - Last Filed: 02/19/17 09:55> - Patient Data Vital Signs - Most Recent: Last Vital Signs Temp 99.6 F 02/19/17 07:50 Pulse 80 02/19/17 07:50 Resp 16 02/19/17 07:50 BP 119/74 02/19/17 07:50 Pulse Ox 97 02/19/17 07:50 I&O - Last 24 Hours: Intake & Output 02/18/17 02/19/17 02/19/17 22:59 06:59 14:59 Intake Total 2363 950 Balance 2369 950 Lab Results - Last 24 Hours: Laboratory Results - last 24 hr 02/19/17 Range/Units 04:00 WBC 6.1 (4.5-11.0) K/uL RBC 2.61 L (3.30-5.50) M/uL Hgb 7.7 L (12.0-15.0) g/dL Hct 24.6 L (36.0-48.0) % MCV 94 (80-98) fL MCH 30 (27-31) pg MCHC 31 L (32-36) % Plt Count 253 (150-400) K/uL Med Orders - Current: Current Medications Acetaminophen (Tylenol) 650 mg PO Q4H PRN PRN Reason: Pain (Mild 1-3) and fever Last Admin: 02/19/17 09:41 Dose: 650 mg Hydrocodone Bitart/Acetaminophen ([place] 325-5 Mg) 1 - 2 tab PO Q4H PRN PRN Reason: Pain Last Admin: 02/17/17 03:45 Dose: 2 tab Benzocaine/Menthol (Cepacol Sore Throat) 1 lozenge MUCMEM 6XDAY PRN PRN Reason: Pain Bisacodyl (Dulcolax) 10 mg RECTAL BID [facility] Last Admin: 02/19/17 08:36 Dose: Not Given Docusate Sodium (Colace) 100 mg PO BID [facility] Last Admin: 02/19/17 08:36 Dose: 100 mg Emollient Ointment (Lansinoh Hpa) 0 gm TOP ASDIRECTED PRN PRN Reason: Pain (mild 1-3) Erythromycin Ethylsuccinate (Eryped 400) 125 mg PO Q8HR [facility] Last Admin: 02/19/17 05:13 Dose: 125 mg Potassium Chloride/Dextrose/Sod Cl (D5 1/2 Ns W/ 20 Meq/L Kcl) 1,000 mls @ 125 mls/hr IV ASDIRECTED [facility] Last Admin: 02/19/17 05:12 Dose: 125 mls/hr Albumin Human (Albumin 25%) 25 gm in 100 mls @ 25 mls/hr IV Q24H [facility] Stop: 02/20/17 12:59 Last Admin: 02/19/17 07:00 Dose: 25 mls/hr Albumin Human (Albumin 25%) 25 gm in 100 mls @ 25 mls/hr IV Q24H [facility] Stop: 02/20/17 16:59 Last Admin: 02/18/17 15:17 Dose: 25 mls/hr Levothyroxine Sodium 100 mcg/ (Levothyroxine Sodium 75 mcg) 175 mcg PO DAILY@ 0730 [facility] Last Admin: 02/19/17 07:38 Dose: 175 mcg Magnesium Hydroxide (Milk Of Magnesia) 60 ml PO ASDIRECTED PRN PRN Reason: COSNTIPATION Metoclopramide HCl (Reglan) 10 mg IVPUSH Q6H [facility] Last Admin: 02/19/17 07:38 Dose: Not Given Morphine Sulfate (Morphine) 1 mg IVPUSH Q1H PRN PRN Reason: Abdominal Pain Naloxone HCl (Narcan) 0.1 mg IV ASDIRECTED PRN PRN Reason: decreased respiratory rate Ondansetron HCl (Zofran Odt) 4 mg PO Q4H PRN PRN Reason: Nausea/Vomiting Last Admin: 02/17/17 12:04 Dose: 4 mg Phenol (Phenaseptic Liquid) 0 ml PO ASDIRECTED PRN PRN Reason: Sore Throat Last Admin: 02/17/17 21:18 Dose: 1 spray Sodium Chloride (Saline Flush) 10 ml FLUSH ASDIRECTED PRN PRN Reason: Keep Vein Open Discontinued Medications Bisacodyl (Dulcolax) 10 mg RECTAL ONETIME ONE Stop: 02/16/17 08:01 Last Admin: 02/16/17 10:25 Dose: 10 mg Ephedrine Sulfate (Ephedrine Sulfate) Confirm Administered Dose 50 mg .ROUTE .STK-MED ONE Stop: 02/13/17 14:06 Last Admin: 02/13/17 15:09 Dose: 10 mg Ephedrine Sulfate (Ephedrine Sulfate) 5 - 10 mg IVPUSH ASDIRECTED PRN PRN Reason: IF SYSTOLIC BP LESS THAN 100 Stop: 02/13/17 18:00 Factor VIIa (Recombinant) (Novoseven Rt) Confirm Administered Dose 2 mcg IVPUSH .STK-MED ONE Stop: 02/13/17 18:06 Factor VIIa (Recombinant) (Novoseven Rt) Confirm Administered Dose 2 mcg IVPUSH .STK-MED ONE Stop: 02/13/17 18:07 Factor VIIa (Recombinant) (Novoseven Rt) 2,000 mcg IVPUSH ONETIME STA Stop: 02/13/17 18:22 Last Admin: 02/13/17 18:13 Dose: 2,000 mcg Fentanyl (Sublimaze) 100 mcg IVPUSH Q1H PRN PRN Reason: Pain (moderate 4-6) Fentanyl (Sublimaze) Confirm Administered Dose 100 mcg .ROUTE .STK-MED ONE Stop: 02/13/17 14:58 Hydromorphone HCl (Dilaudid Plush Finisher 15 Mg In Ns 30 Ml) Confirm Administered Dose 15 mg IV .STK-MED ONE Stop: 02/13/17 19:02 Last Admin: 02/13/17 22:30 Dose: Not Given Hydromorphone HCl (Dilaudid Plush Finisher 15 Mg In Ns 30 Ml) 15 mg IV ASDIRECTED PRN; Protocol PRN Reason: PAIN Hydromorphone HCl (Dilaudid Plush Finisher 15 Mg In Ns 30 Ml) 0 mg IV ASDIRECTED PRN; Protocol PRN 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: 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 Last Admin: 02/14/17 16:05 Dose: 15 mg Hydromorphone HCl (Dilaudid Plush Finisher 15 Mg In Ns 30 Ml) 0 mg IV ASDIRECTED JAZ PRN Reason: Protocol Last Admin: 02/15/17 13:50 Dose: 15 mg Oxytocin/Sodium Chloride (Pitocin In Ns 20 Units/1,000 Ml) 20 unit in 1,000 mls @ 6 mls/hr IV TITRATE JAZ; 2 MUNITS/MIN PRN Reason: Protocol Last Admin: 02/13/17 14:17 Dose: 2 munits/min, 6 mls/hr Lactated Ringer's (Ringers, Lactated) 1,000 mls @ 125 mls/hr IV ASDIRECTED JAZ Last Admin: 02/13/17 14:20 Dose: 125 mls/hr Oxytocin/Sodium Chloride (Pitocin In Ns 20 Units/1,000 Ml) Confirm Administered Dose 20 unit in 1,000 mls @ as directed .ROUTE .STK-MED ONE Stop: 02/13/17 14:13 Last Admin: 02/13/17 14:17 Dose: Not Given Ropivacaine (Naropin 0.2%) Confirm Administered Dose 100 mls @ as directed .ROUTE .STK-MED ONE Stop: 02/13/17 14:58 Potassium Chloride/Dextrose/Sod Cl (D5 1/2 Ns W/ 20 Meq/L Kcl) Confirm Administered Dose 1,000 mls @ as directed .ROUTE .STK-MED ONE Stop: 02/13/17 20:39 Last Admin: 02/13/17 22:31 Dose: Not Given Lactated Ringer's (Ringers, Lactated) 500 mls @ 500 mls/hr IV .BOLUS JAZ Last Admin: 02/13/17 22:00 Dose: 500 mls/hr Potassium Chloride/Dextrose/Sod Cl (D5 1/2 Ns W/ 20 Meq/L Kcl) 1,000 mls @ 150 mls/hr IV ASDIRECTED JAZ Potassium Chloride/Dextrose/Sod Cl (D5 1/2 Ns W/ 20 Meq/L Kcl) 1,000 mls @ 150 mls/hr IV ASDIRECTED JAZ Last Admin: 02/14/17 04:01 Dose: 150 mls/hr Dextrose/Sodium Chloride (Dextrose 5%-1/2 Ns) 1,000 mls @ 0 mls/hr IV ASDIRECTED JAZ PRN Reason: KVO Last Admin: 02/15/17 08:17 Dose: 125 mls/hr Lidocaine HCl (Xylocaine 1%) Confirm Administered Dose 100 ml .ROUTE .STK-MED ONE Stop: 02/13/17 14:13 Last Admin: 02/13/17 22:31 Dose: Not Given Methylergonovine Maleate (Methergine) Confirm Administered Dose 0.2 mg .ROUTE .STK-MED ONE Stop: 02/13/17 18:35 Last Admin: 02/13/17 19:53 Dose: Not Given Methylergonovine Maleate (Methergine) Confirm Administered Dose 0.2 mg .ROUTE .STK-MED ONE Stop: 02/13/17 18:39 Last Admin: 02/13/17 20:38 Dose: Not Given Methylergonovine Maleate (Methergine) 0.2 mg IM ONETIME STA Stop: 02/13/17 19:55 Last Admin: 02/13/17 18:46 Dose: 0.2 mg Metoclopramide HCl (Reglan) 10 mg IVPUSH ONETIME ONE Stop: 02/18/17 07:16 Last Admin: 02/18/17 07:36 Dose: 10 mg Misoprostol (Cytotec) 50 mcg VAG ONETIME ONE Stop: 02/13/17 08:01 Last Admin: 02/13/17 08:04 Dose: 50 mcg Misoprostol (Cytotec) Confirm Administered Dose 25 mcg .ROUTE .STK-MED ONE Stop: 02/13/17 12:48 Last Admin: 02/13/17 12:51 Dose: Not Given Misoprostol (Cytotec) 25 mcg VAG ONETIME ONE Stop: 02/13/17 12:50 Last Admin: 02/13/17 13:22 Dose: 25 mcg Naloxone HCl (Narcan) Confirm Administered Dose 0.4 mg .ROUTE .STK-MED ONE Stop: 02/13/17 14:13 Last Admin: 02/13/17 22:31 Dose: Not Given Oxytocin (Pitocin) Confirm Administered Dose 10 unit .ROUTE .STK-MED ONE Stop: 02/13/17 14:13 Last Admin: 02/13/17 22:00 Dose: 10 unit Oxytocin (Pitocin) Confirm Administered Dose 10 unit .ROUTE .STK-MED ONE Stop: 02/13/17 19:11 Last Admin: 02/13/17 22:42 Dose: 10 unit Oxytocin (Pitocin) Confirm Administered Dose 20 unit .ROUTE .STK-MED ONE Stop: 02/13/17 16:42 Phenol (Phenaseptic Liquid) 177 ml PO ASDIRECTED PRN PRN Reason: Sore Throat Sodium Chloride (Normal Saline) 2,000 ml IV .STK-MED ONE Stop: 02/13/17 17:31 Last Admin: 02/13/17 17:30 Dose: 2,000 ml - Problem List & Annotations (1) Elective induction of labor planned SNOMED Code(s): 106158915 Code(s): AMZ6717 - Status: Acute Current Visit: Yes (2) SNOMED Code(s): 66402514 Code(s): Z34.90 - ENCNTR FOR SUPRVSN OF NORMAL , UNSP, UNSP TRIMESTER Status: Acute Current Visit: Yes Qualifiers: Weeks of gestation: 40 weeks Qualified Code(s): Z3A.40 - 40 weeks gestation of - Plan Plan:: I attest I was present for exam and agree with assessment and exam. Dominique WHATLEY, CNM
[2017-02-18] MEDS: Bisacodyl 10 MG Supp RECTAL SCH ×3 (12:25→21:28)
[2017-02-18] MEDS: Metoclopramide 10 MG/2 ML SDV IVPUSH SCH ×2 (13:17→18:03)
[2017-02-19] MEDS: Metoclopramide 10 MG/2 ML SDV IVPUSH SCH ×2 (00:10→07:38)
[2017-02-19] MEDS: D5 1/2 NS w/ 20 mEq/L KCl 1,000 ML IV SCH (05:12)
[2017-02-19] MEDS: Erythromycin Ethylsuccinate Susp 400 MG/5 ML 100 ML Bottle PO SCH (05:13)
[2017-02-19] MEDS ORDERED: Magnesium Hydroxide 400 MG/5 ML Susp 30 ML Cup PO PRN (07:46)
[2017-02-19 07:51] VITALS: BP 119/74
[2017-02-19] MEDS: Bisacodyl 10 MG Supp RECTAL SCH (08:36)
[2017-02-19] MEDS: Docusate Sodium 100 MG Cap PO SCH (08:36)
[2017-02-19] MEDS: Acetaminophen 325 MG Tab PO PRN (09:41)
--- NOTE | 2017-02-19 09:46 | PN ---
DATE OF SERVICE: 02/08/2017 The patient has been afebrile with T-max of 99.2 over the past 24 hours. Heart rate is running anywhere around 100 and hemoglobin has dropped a little bit at 8.4 and I suspect that is due to some fluid shifting and breakdown of some of the transfused blood rather than any significant additional bleeding. Urine output has been satisfactory. NG output has been relatively scant. I think we will add some erythromycin and Reglan to augment the gastric emptying, GI tract motility per se, and then try getting the NG tube out at noon today. Recheck an abdominal x-ray tomorrow. Her chemistries showed a very low albumin at 1.4 and we will supplement that over the next 2 or 3 days and recheck a CBC in the morning. Weston Wan MD /[id number]
--- NOTE | 2017-02-20 11:08 | CR ---
Abdomen 2V AP Flat Upright HISTORY: Vomiting COMPARISON: 02/17/2017. FINDINGS: Surgical excision midline. NG tube within the stomach. There remains some dilated loops of small bowel with air-fluid levels improved from prior study. No free air seen.
--- NOTE | 2017-02-20 11:09 | CR ---
Abdomen 2V AP Flat Upright HISTORY: Follow-up ileus COMPARISON: 02/18/2017. FINDINGS: NG tube has been removed. There remains some dilated loops of small bowel centrally may be slightly improved from prior study. No free air seen.
--- NOTE | 2017-02-20 13:27 | PN ---
DATE OF SERVICE: 02/19/2017 The patient has been afebrile with stable vital signs. Oral intake is resumed satisfactorily. She had several bowel movements yesterday, and oral intake is fairly good. We will discharge her home today. Her hemoglobin is 7.7, and we will see her back this coming Monday with CBC, CMP, and ferritin level. Her albumin level yesterday was noted to be quite low at 1.4, so she got a dose of albumin yesterday, and we will give her 50 grams of albumin prior to discharge today and follow up with Dr. Wan at [facility] on 02/22/17 with the above labs. We will have the patient finish off her vitamins, continue her Synthroid 175 mcg p.o. daily, and a prescription for [place] 5/325 mg 1 to 2 tabs q.4 hours p.r.n. pain, #30 is given and will be given 2 doses of milk of magnesia to take home in the event she runs into any constipation over the next few days. Weston Wan MD /[id number]
--- NOTE | 2017-04-05 14:41 | PCM.DCSUM1 ---
Discharge Summary - Hospital Course Free Text/Narrative:: This 26 year old white female was admitted on February 13, 2017 with her second child and labored. The baby suddenly developed severe prolonged decelerations so a request was made for a stat section. This was done under rapid sequence general endotracheal anesthesia delivering a boy with Apgars of 7,8,8. Lorraine had problems in the PAR with hypotension despite maximum medical management. There was only scant vaginal bleeding. She was taken back to the OR for presumed intraabdominal bleeding, but encountered essentially no blood in her abdomen. Her contracted uterus was now noted to be distended and at this time we found blood pouring out of her vaginal. She underwent a hysterectomy, leaving her tubes and ovaries in place. She was slow to recover, but by February 19, 2017 she was eating well and wanted to go home. She was discharged with a hemoglobin of 7.7 in good condition. Pathology returned placenta accreta. Brief History: See above narrative. - Discharge Data Discharge Date: 02/19/17 Discharge Disposition: Home, Self-Care 01 Condition: Good - Discharge Diagnosis/Problem(s) (1) Status post hysterectomy SNOMED Code(s): 445908438, [id number] ICD Code: Z90.710 - ACQUIRED ABSENCE OF BOTH CERVIX AND UTERUS Status: Acute - Patient Summary/Data Operative Procedure(s) Performed: 1. section. 2. Hysterectomy ( second operation). Complications: Bleeding from placenta accreta. Hospital Course: See above narrative. - Patient Instructions Diet: Usual Diet as Tolerated, Drink 8-10+ Glasses/Day Activity: As Tolerated Activity, Other: no lifting heavier than baby and carseat for 1 month post op Driving: Do Not Drive Driving, Other: while taking narcotic pain medication Showering/Bathing: May Shower Wound/Incision Care: Keep Operative Site/Wound Site Clean and Dry Notify Provider of: Fever, Increased Pain, Swelling and Redness, Drainage, Nausea and/or Vomiting - Discharge Plan Home Medications: Home Meds Levothyroxine Sodium [Levothyroxine Sodium] 175 mcg PO DAILY 01/12/15 [History] Vit/Iron Bisglycin/FA [Vinate II] 1 tab PO QPM 01/12/15 [History] - Discharge Summary/Plan Comment DC Time >30 min.: Yes Discharge Summary/Plan Comment: See above narrative. - Patient Data Vitals - Most Recent: Last Vital Signs Temp 99.6 F 02/19/17 07:50 Pulse 80 02/19/17 07:50 Resp 16 02/19/17 07:50 BP 119/74 02/19/17 07:50 Pulse Ox 97 02/19/17 07:50 Weight - Most Recent: 228 lb Med Orders - Current: Current Medications Discontinued Medications Acetaminophen (Tylenol) 650 mg PO Q4H PRN PRN Reason: Pain (Mild 1-3) and fever Last Admin: 02/19/17 09:41 Dose: 650 mg Hydrocodone Bitart/Acetaminophen ([place] 325-5 Mg) 1 - 2 tab PO Q4H PRN PRN Reason: Pain Last Admin: 02/17/17 03:45 Dose: 2 tab Benzocaine/Menthol (Cepacol Sore Throat) 1 lozenge MUCMEM 6XDAY PRN PRN Reason: Pain Bisacodyl (Dulcolax) 10 mg RECTAL ONETIME ONE Stop: 02/16/17 08:01 Last Admin: 02/16/17 10:25 Dose: 10 mg Bisacodyl (Dulcolax) 10 mg RECTAL BID [facility] Last Admin: 02/19/17 08:36 Dose: Not Given Docusate Sodium (Colace) 100 mg PO BID [facility] Last Admin: 02/19/17 08:36 Dose: 100 mg Emollient Ointment (Lansinoh Hpa) 0 gm TOP ASDIRECTED PRN PRN Reason: Pain (mild 1-3) Ephedrine Sulfate (Ephedrine Sulfate) Confirm Administered Dose 50 mg .ROUTE .STK-MED ONE Stop: 02/13/17 14:06 Last Admin: 02/13/17 15:09 Dose: 10 mg Ephedrine Sulfate (Ephedrine Sulfate) 5 - 10 mg IVPUSH ASDIRECTED PRN PRN Reason: IF SYSTOLIC BP LESS THAN 100 Stop: 02/13/17 18:00 Erythromycin Ethylsuccinate (Eryped 400) 125 mg PO Q8HR [facility] Last Admin: 02/19/17 05:13 Dose: 125 mg Factor VIIa (Recombinant) (Novoseven Rt) Confirm Administered Dose 2 mcg IVPUSH .STK-MED ONE Stop: 02/13/17 18:06 Factor VIIa (Recombinant) (Novoseven Rt) Confirm Administered Dose 2 mcg IVPUSH .STK-MED ONE Stop: 02/13/17 18:07 Factor VIIa (Recombinant) (Novoseven Rt) 2,000 mcg IVPUSH ONETIME STA Stop: 02/13/17 18:22 Last Admin: 02/13/17 18:13 Dose: 2,000 mcg Fentanyl (Sublimaze) 100 mcg IVPUSH Q1H PRN PRN Reason: Pain (moderate 4-6) Fentanyl (Sublimaze) Confirm Administered Dose 100 mcg .ROUTE .STK-MED ONE Stop: 02/13/17 14:58 Hydromorphone HCl (Dilaudid Auditing Specialist 15 Mg In Ns 30 Ml) Confirm Administered Dose 15 mg IV .STK-MED ONE Stop: 02/13/17 19:02 Last Admin: 02/13/17 22:30 Dose: Not Given Hydromorphone HCl (Dilaudid Auditing Specialist 15 Mg In Ns 30 Ml) 15 mg IV ASDIRECTED PRN; Protocol PRN Reason: PAIN Hydromorphone HCl (Dilaudid Auditing Specialist 15 Mg In Ns 30 Ml) 0 mg IV ASDIRECTED PRN; Protocol PRN Reason: 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 ATTENDANT PAIN CONTROL Last Admin: 02/14/17 16:05 Dose: 15 mg Hydromorphone HCl (Dilaudid Auditing Specialist 15 Mg In Ns 30 Ml) 0 mg IV ASDIRECTED JAZ PRN Reason: Protocol Last Admin: 02/15/17 13:50 Dose: 15 mg Oxytocin/Sodium Chloride (Pitocin In Ns 20 Units/1,000 Ml) 20 unit in 1,000 mls @ 6 mls/hr IV TITRATE JAZ; 2 MUNITS/MIN PRN Reason: Protocol Last Admin: 02/13/17 14:17 Dose: 2 munits/min, 6 mls/hr Lactated Ringer's (Ringers, Lactated) 1,000 mls @ 125 mls/hr IV ASDIRECTED JAZ Last Admin: 02/13/17 14:20 Dose: 125 mls/hr Oxytocin/Sodium Chloride (Pitocin In Ns 20 Units/1,000 Ml) Confirm Administered Dose 20 unit in 1,000 mls @ as directed .ROUTE .STK-MED ONE Stop: 02/13/17 14:13 Last Admin: 02/13/17 14:17 Dose: Not Given Ropivacaine (Naropin 0.2%) Confirm Administered Dose 100 mls @ as directed .ROUTE .STK-MED ONE Stop: 02/13/17 14:58 Potassium Chloride/Dextrose/Sod Cl (D5 1/2 Ns W/ 20 Meq/L Kcl) Confirm Administered Dose 1,000 mls @ as directed .ROUTE .STK-MED ONE Stop: 02/13/17 20:39 Last Admin: 02/13/17 22:31 Dose: Not Given Lactated Ringer's (Ringers, Lactated) 500 mls @ 500 mls/hr IV .BOLUS JAZ Last Admin: 02/13/17 22:00 Dose: 500 mls/hr Potassium Chloride/Dextrose/Sod Cl (D5 1/2 Ns W/ 20 Meq/L Kcl) 1,000 mls @ 150 mls/hr IV ASDIRECTED JAZ Potassium Chloride/Dextrose/Sod Cl (D5 1/2 Ns W/ 20 Meq/L Kcl) 1,000 mls @ 150 mls/hr IV ASDIRECTED JAZ Last Admin: 02/14/17 04:01 Dose: 150 mls/hr Dextrose/Sodium Chloride (Dextrose 5%-1/2 Ns) 1,000 mls @ 0 mls/hr IV ASDIRECTED JAZ PRN Reason: KVO Last Admin: 02/15/17 08:17 Dose: 125 mls/hr Potassium Chloride/Dextrose/Sod Cl (D5 1/2 Ns W/ 20 Meq/L Kcl) 1,000 mls @ 125 mls/hr IV ASDIRECTED JAZ Last Admin: 02/19/17 05:12 Dose: 125 mls/hr Albumin Human (Albumin 25%) 25 gm in 100 mls @ 25 mls/hr IV Q24H JAZ Stop: 02/20/17 12:59 Last Admin: 02/19/17 07:00 Dose: 25 mls/hr Albumin Human (Albumin 25%) 25 gm in 100 mls @ 25 mls/hr IV Q24H [facility] Stop: 02/20/17 16:59 Last Admin: 02/19/17 09:00 Dose: 50 mls/hr Levothyroxine Sodium 100 mcg/ (Levothyroxine Sodium 75 mcg) 175 mcg PO DAILY@ 0730 [facility] Last Admin: 02/19/17 07:38 Dose: 175 mcg Lidocaine HCl (Xylocaine 1%) Confirm Administered Dose 100 ml .ROUTE .STK-MED ONE Stop: 02/13/17 14:13 Last Admin: 02/13/17 22:31 Dose: Not Given Magnesium Hydroxide (Milk Of Magnesia) 60 ml PO ASDIRECTED PRN PRN Reason: COSNTIPATION Methylergonovine Maleate (Methergine) Confirm Administered Dose 0.2 mg .ROUTE .STK-MED ONE Stop: 02/13/17 18:35 Last Admin: 02/13/17 19:53 Dose: Not Given Methylergonovine Maleate (Methergine) Confirm Administered Dose 0.2 mg .ROUTE .STK-MED ONE Stop: 02/13/17 18:39 Last Admin: 02/13/17 20:38 Dose: Not Given Methylergonovine Maleate (Methergine) 0.2 mg IM ONETIME STA Stop: 02/13/17 19:55 Last Admin: 02/13/17 18:46 Dose: 0.2 mg Metoclopramide HCl (Reglan) 10 mg IVPUSH ONETIME ONE Stop: 02/18/17 07:16 Last Admin: 02/18/17 07:36 Dose: 10 mg Metoclopramide HCl (Reglan) 10 mg IVPUSH Q6H JAZ Last Admin: 02/19/17 07:38 Dose: Not Given Misoprostol (Cytotec) 50 mcg VAG ONETIME ONE Stop: 02/13/17 08:01 Last Admin: 02/13/17 08:04 Dose: 50 mcg Misoprostol (Cytotec) Confirm Administered Dose 25 mcg .ROUTE .STK-MED ONE Stop: 02/13/17 12:48 Last Admin: 02/13/17 12:51 Dose: Not Given Misoprostol (Cytotec) 25 mcg VAG ONETIME ONE Stop: 02/13/17 12:50 Last Admin: 02/13/17 13:22 Dose: 25 mcg Morphine Sulfate (Morphine) 1 mg IVPUSH Q1H PRN PRN Reason: Abdominal Pain Naloxone HCl (Narcan) Confirm Administered Dose 0.4 mg .ROUTE .STK-MED ONE Stop: 02/13/17 14:13 Last Admin: 02/13/17 22:31 Dose: Not Given Naloxone HCl (Narcan) 0.1 mg IV ASDIRECTED PRN PRN Reason: decreased respiratory rate Ondansetron HCl (Zofran Odt) 4 mg PO Q4H PRN PRN Reason: Nausea/Vomiting Last Admin: 02/17/17 12:04 Dose: 4 mg Oxytocin (Pitocin) Confirm Administered Dose 10 unit .ROUTE .STK-MED ONE Stop: 02/13/17 14:13 Last Admin: 02/13/17 22:00 Dose: 10 unit Oxytocin (Pitocin) Confirm Administered Dose 10 unit .ROUTE .STK-MED ONE Stop: 02/13/17 19:11 Last Admin: 02/13/17 22:42 Dose: 10 unit Oxytocin (Pitocin) Confirm Administered Dose 20 unit .ROUTE .STK-MED ONE Stop: 02/13/17 16:42 Phenol (Phenaseptic Liquid) 177 ml PO ASDIRECTED PRN PRN Reason: Sore Throat Phenol (Phenaseptic Liquid) 0 ml PO ASDIRECTED PRN PRN Reason: Sore Throat Last Admin: 02/17/17 21:18 Dose: 1 spray Sodium Chloride (Saline Flush) 10 ml FLUSH ASDIRECTED PRN PRN Reason: Keep Vein Open Sodium Chloride (Normal Saline) 2,000 ml IV .STK-MED ONE Stop: 02/13/17 17:31 Last Admin: 02/13/17 17:30 Dose: 2,000 ml *Q Meaningful Use (DIS) - VTE *Q VTE Criteria *Q: - Stroke *Q Stroke Criteria *Q: - AMI *Q AMI Criteria *Q:
== END 2017-02-19 10:50 | disposition home or self-care (01) | DRG 540 ==
LOC: JP.OB 06:57 → OBSVTOIN 16:42 → JP.ICU 20:38 → JP.MS 02-15 16:18
PROVIDERS: ADMIT Nurse Practitioner Family; ATTEND Surgery
PROC: 10D00Z1 Extraction of Products of Conception, Low, Open Approach (ICD-10-PCS; principal; 2017-02-13)
PROC: 0UT90ZZ Resection of Uterus, Open Approach (ICD-10-PCS; 2017-02-13)
PROC: 0W3R0ZZ Control Bleeding in Genitourinary Tract, Open Approach (ICD-10-PCS; 2017-02-13)
PROC: 0UTC0ZZ Resection of Cervix, Open Approach (ICD-10-PCS; 2017-02-13)
PROC: 10907ZC Drainage of Amniotic Fluid, Therapeutic from Products of Conception, Via Natural or Artificial Opening (ICD-10-PCS; 2017-02-13)
PROC: 3E0P7VZ Introduction of Hormone into Female Reproductive, Via Natural or Artificial Opening (ICD-10-PCS; 2017-02-13)
PROC: 3E0P3VZ Introduction of Hormone into Female Reproductive, Percutaneous Approach (ICD-10-PCS; 2017-02-13)
PROC: 00HU33Z Insertion of Infusion Device into Spinal Canal, Percutaneous Approach (ICD-10-PCS; 2017-02-13)
PROC: 30233N1 Transfusion of Nonautologous Red Blood Cells into Peripheral Vein, Percutaneous Approach (ICD-10-PCS; 2017-02-13)
PROC: 30233N1 Transfusion of Nonautologous Red Blood Cells into Peripheral Vein, Percutaneous Approach (ICD-10-PCS; 2017-02-14)
DX: O76 Abnormality in fetal heart rate and rhythm complicating labor and delivery (principal); Z3A.40 40 weeks gestation of pregnancy; Z37.0 Single live birth; N99.820 Postprocedural hemorrhage of a genitourinary system organ or structure following a genitourinary system procedure; O72.2 Delayed and secondary postpartum hemorrhage; O75.4 Other complications of obstetric surgery and procedures; O99.284 Endocrine, nutritional and metabolic diseases complicating childbirth; E03.9 Hypothyroidism, unspecified; Z91.040 Latex allergy status; O77.0 Labor and delivery complicated by meconium in amniotic fluid; O43.219 Placenta accreta, unspecified trimester
CPT/HCPCS: 36415; 36430; 59409; 74020; 74020-26; 80048; 80053; 80305; 81001; 85018; 85027; 86850; 86900; 86901; 86920; 86922; 88307; 88312; 94762; A9270-GY; J1170; J2210; J2590; J2765; J2795; J3010; J3480; J7040; J7120; J7189; P9016; P9047